=== PATIENT | male | born 1985 | race Hispanic/Latino ===

== ENCOUNTER 2019-03-04 13:25 | Emergency (ER) | payer OTHER ==
[~2019-03-04] VITALS: Ht 172.7 cm; Wt 97.7 kg
[2019-03-04] MEDS ORDERED: KETOROLAC 30 MG/ML VIAL (J1885) IV ONE (13:45)
[2019-03-04] MEDS ORDERED: KETOROLAC 60 MG/2 ML VIAL (J1885) IM ONE (14:15)
--- NOTE | 2019-03-04 15:00 | REP ---
PELVIS AND LEFT HIP: AP view of the pelvis and AP and frog-leg views of the left hip are performed. There is a intramedullary jordana in the left femur. Two metallic screws are seen in the proximal left femur, in the intertrochanteric and subtrochanteric regions. There are mild heterotopic calcifications along the greater trochanter. There is no acute fracture or dislocation. IMPRESSION: No acute fracture or dislocation. Electronically Signed by Lei Self MD 03/05/2019 03:08 P
--- NOTE | 2019-03-04 15:02 | REP ---
LEFT FEMUR, TWO VIEWS: AP and lateral views of the left femur are performed. Intramedullary jordana is seen in the femur. Metallic screws are also seen. There appears to be an old healed fracture of the femoral shaft. No acute fracture or dislocation is seen. IMPRESSION: No acute fracture or dislocation. Electronically Signed by Lei Self MD 03/05/2019 03:09 P
[2019-03-04] MEDS ORDERED: IBUP80TA PO (15:09)
[2019-03-04 15:23] VITALS: BP 125/68
== END 2019-03-04 15:36 | disposition home or self-care (01) ==
LOC: M ED 13:25
DX: S76.112A Strain of left quadriceps muscle, fascia and tendon, initial encounter (principal); X50.1XXA Overexertion from prolonged static or awkward postures, initial encounter; Y92.139 Unspecified place military base as the place of occurrence of the external cause; Y93.02 Activity, running; Z87.81 Personal history of (healed) traumatic fracture
CPT/HCPCS: 73502; 73552; 96372; 99284; J1885

== ENCOUNTER 2021-08-22 16:31 | Emergency (ER) | payer OTHER ==
[~2021-08-22] VITALS: Ht 172.7 cm; Wt 107.2 kg
[~2021-08-22 16:31] MED LIST: IBUP80TA PO
[2021-08-22 16:32] VITALS: BP 133/77
[2021-08-22] MEDS ORDERED: TIZA4CAP6 PO (16:40)
--- OUTSIDE RECORDS SUMMARY | 2021-08-22 16:42 | CCD ---
Author Organization Unknown Address [address] [place] [address] Phone [phone] Care Team Providers Care Family Medicine Resident Name Role Phone [facility] 3 [phone] Allergies Code Code System Name Reaction Severity Status Onset NKDA Medications Name Status Start Date Stop Date Cymbalta 30 mg capsule,delayed release Take 1 capsule every day by oral route. Completed 05/21/2020 multivitamin once daily Active Not available sildenafil 100 mg tablet Active Not ronn ilable tizanidine 4 mg tablet TAKE 1 TABLET BY MOUTH EVERY 8 HOURS NEEDED Active Not available trazodone 50 mg tablet Take 1 tablet every day by oral route at bedtime. Completed 05/21/2020 Problems None recorded. Procedures Date Name Performed by Arthroscopy Notes: left knee screw removal Information not available Open Reduction of Fracture o f Femur Notes: left Information not available 08/07/2019 MRI, Lumbar Spine, W/o Contrast [facility] [address] [address] (Work Place) Results Lab Results Date Name Specimen Result Interpretation Description Value Range Status Address 07/02/2021 [facility] Pdf Report NOS No observation recorded. [facility]: [address] [facility] 07/02/2021 SARS CoV 2 RNA (COVID-19), QL, living skills advisor-PCR, Respirat ory Specimen NOS Normal Sars-cov-2 negative negative Final [facility]: [facility] 05/01/2020 SARS CoV 2 RNA (COVID-19), QL, living skills advisor-PCR, Respiratory Specim en No observation recorded. [employer]: [address] [place] [address], [place] Past Encounters 07/08/2021 Lumbosacral Spondylosis without Myelopathy; Spondylosis without Myelopathy; Degeneration of Lumbar Intervertebral Disc; Degeneration of Lumbosacral Intervertebral Disc; Displacement of Lumbar Intervertebral Disc without Myelopathy; Intervertebral Disc Disorder; Spondylolysis; Inflammation of Sacroiliac Joint; Myofascial Pain Jian Collins MD: [id number] [address], [place] [address], Ph. 07/02/2021 Pre-surgery Testing; Viral Screening Jian Collins MD: [address] [address], [place] [address], Ph. [phone] 07/01/2021 Lumbosacral Spondylosis without Myelopathy; Degeneration of Lumbar Intervertebral Disc; Degeneration of Lumbosacral Intervertebral Disc; Displacement of Lumbar Intervertebral Disc without Myelopathy; Intervertebral Disc Disorder; Spondylosis without Myelopathy; Spondylolysis; Inflammation of Sacroiliac Joint; Myofascial Pain Jenny Doran, FAST FOOD WORKER: [address] [address], [place] [address], Ph. 06/07/2021 Myofascial Pain; Lumbosacral Spondylosis without Myelopathy; Degeneration of Lumbar Intervertebral Disc; Degeneration of Lumbosacral Intervertebral Disc; Displacement of Lumbar Intervertebral Disc without Myelopathy; Intervertebral Disc Disorder; Spondylosis without Myelopathy; Spondylolysis; Inflammation of Sacroiliac Joint Jian Collins MD: [address] [address], [place] [address], Ph. 05/21/2021 Lumbosacral Spondylosis without Myelopathy; Degeneration of Lumbar Intervertebral Disc; Degeneration of Lumbosacral Intervertebral Disc; Displacement of Lumbar Intervertebral Disc without Myelopathy; Intervertebral Disc Disorder; Spondylosis without Myelopathy; Spondylolysis; Inflammation of Sacroiliac Joint; Myofascial Pain Jenny Doran, FAST FOOD WORKER: [id number] [address], [place] [address], Ph. 03/08/2021 Lumbosacral Spondylosis without Myelopathy; Degeneration of Lumbar Intervertebral Disc; Degeneration of Lumbosacral Intervertebral Disc; Displacement of Lumbar Intervertebral Disc without Myelopathy; Intervertebral Disc Disorder; Spondylosis without Myelopathy; Spondylolysis; Inflammation of Sacroiliac Joint Jenny Doran, FAST FOOD WORKER: [address] [address], Ph. 02/19/2021 Lumbosacral Spondylosis without Myelopathy; Spondylosis without Myelopathy; Degeneration of Lumbar Intervertebral Disc; Degeneration of Lumbosacral Intervertebral Disc; Displacement of Lumbar Intervertebral Disc without Myelopathy; Intervertebral Disc Disorder; Spondylolysis; Inflammation of Sacroiliac Joint Jian Collins MD: [id number] [address], Ph. 02/02/2021 Lumbosacral Spondylosis without Myelopathy; Degeneration of Lumbar Intervertebral Disc; Degeneration of Lumbosacral Intervertebral Disc; Displacement of Lumbar Intervertebral Disc without Myelopathy; Intervertebral Disc Disorder; Spondylosis without Myelopathy; Spondylolysis; Inflammation of Sacroiliac Joint Jenny Nadege Doran, FAST FOOD WORKER: [address] [address], Ph. 01/28/2021 Lumbosacral Spondylosis without Myelopathy; Spondylosis without Myelopathy; Degeneration of Lumbar Intervertebral Disc; Degeneration of Lumbosacral Intervertebral Disc; Displacement of Lumbar Intervertebral Disc without Myelopathy; Intervertebral Disc Disorder; Spondylolysis; Inflammation of Sacroiliac Joint Jian Collins MD: [address] [address], Ph. 01/07/2021 Lumbosacral Spondylosis without Myelopathy; Degeneration of Lumbar Intervertebral Disc; Degeneration of Lumbosacral Intervertebral Disc; Displacement of Lumbar Intervertebral Disc without Myelopathy; Intervertebral Disc Disorder; Spondylosis without Myelopathy; Spondylolysis; Inflammation of Sacroiliac Joint Jenny Stacysonkris Simson, FAST FOOD WORKER: [address] [address], Ph. 12/23/2020 Inflammation of Sacroiliac Joint; Lumbosacral Spondylosis without Myelopathy; Degeneration of Lumbar Intervertebral Disc; Degeneration of Lumbosacral Intervertebral Disc; Displacement of Lumbar Intervertebral Disc without Myelopathy; Intervertebral Disc Disorder; Spondylosis without Myelopathy; Spondylolysis Jian Collins MD: [id number] [address], [place] [address], Ph. 12/09/2020 Lumbosacral Spondylosis without Myelopathy; Degeneration of Lumbar Intervertebral Disc; Degeneration of Lumbosacral Intervertebral Disc; Displacement of Lumbar Intervertebral Disc without Myelopathy; Intervertebral Disc Disorder; Spondylosis without Myelopathy; Spondylolysis; Inflammation of Sacroiliac Joint Jenny Nadege Doran, FAST FOOD WORKER: [address] [address], [place] [address], Ph. 05/21/2020 Lumbosacral Spondylosis without Myelopathy; Degeneration of Lumbar Intervertebral Disc; Degeneration of Lumbosacral Intervertebral Disc; Displacement of Lumbar Intervertebral Disc without Myelopathy; Intervertebral Disc Disorder; Spondylosis without Myelopathy; Spondylolysis; Inflammation of Sacroiliac Joint Jenny Nadege Doran, FAST FOOD WORKER: [address] [address], Ph. 05/06/2020 Inflammation of Sacroiliac Joint; Lumbosacral Spondylosis without Myelopathy; Degeneration of Lumbar Intervertebral Disc; Degeneration of Lumbosacral Intervertebral Disc; Displacement of Lumbar Intervertebral Disc without Myelopathy; Intervertebral Disc Disorder; Spondylosis without Myelopathy; Spondylolysis Jian Collins MD: [address] [address], Ph. 05/01/2020 Pre-surgery Testing; Viral Screening Jian Collins MD: [address] [address], [place] [address], Ph. [phone] 03/09/2020 Lumbosacral Spondylosis without Myelopathy; Degeneration of Lumbar Intervertebral Disc; Degeneration of Lumbosacral Intervertebral Disc; Displacement of Lumbar Intervertebral Disc without Myelopathy; Intervertebral Disc Disorder; Spondylosis without Myelopathy; Spondylolysis; Inflammation of Sacroiliac Joint Jenny Stacysonkris Doran, FAST FOOD WORKER: [address] [address], [place] [address], Ph. 02/10/2020 Lumbosacral Spondylosis without Myelopathy; Degeneration of Lumbar Intervertebral Disc; Degeneration of Lumbosacral Intervertebral Disc; Displacement of Lumbar Intervertebral Disc without Myelopathy; Intervertebral Disc Disorder; Spondylosis without Myelopathy; Spondylolysis Jenny Doran, FAST FOOD WORKER: [address] [address], Ph. 01/10/2020 Lumbosacral Spondylosis without Myelopathy; Spondylosis without Myelopathy; Degeneration of Lumbar Intervertebral Disc; Degeneration of Lumbosacral Intervertebral Disc; Displacement of Lumbar Intervertebral Disc without Myelopathy; Intervertebral Disc Disorder; Spondylolysis Jian Collins MD: [address] [address], Ph. 12/26/2019 Lumbosacral Spondylosis without Myelopathy; Spondylosis without Myelopathy; Degeneration of Lumbar Intervertebral Disc; Degeneration of Lumbosacral Intervertebral Disc; Displacement of Lumbar Intervertebral Disc without Myelopathy; Intervertebral Disc Disorder; Spondylolysis Jian Collins MD: [address] [address], Ph. 12/04/2019 Lumbosacral Spondylosis without Myelopathy; Degeneration of Lumbar Intervertebral Disc; Degeneration of Lumbosacral Intervertebral Disc; Displacement of Lumbar Intervertebral Disc without Myelopathy; Intervertebral Disc Disorder; Spondylosis without Myelopathy; Spondylolysis Jenny Doran, FAST FOOD WORKER: [address] [address], Ph. 11/28/2019 Lumbosacral Spondylosis without Myelopathy; Spondylosis without Myelopathy; Degeneration of Lumbosacral Intervertebral Disc; Degeneration of Lumbar Intervertebral Disc; Intervertebral Disc Disorder; Displacement of Lumbar Intervertebral Disc without Myelopathy Jian Collins MD: [address] [address], Ph. 11/07/2019 Intervertebral Disc Disorder; Displacement of Lumbar Intervertebral Disc without Myelopathy; Degeneration of Lumbosacral Intervertebral Disc; Degeneration of Lumbar Intervertebral Disc; Lumbosacral Spondylosis without Myelopathy; Spondylosis without Myelopathy Jian Collins MD: [address] [address], Ph. 10/03/2019 Intervertebral Disc Disorder; Displacement of Lumbar Intervertebral Disc without Myelopathy; Degeneration of Lumbosacral Intervertebral Disc; Degeneration of Lumbar Intervertebral Disc; Lumbosacral Spondylosis without Myelopathy; Spondylosis without Myelopathy Jian Collins MD: [address] [address], Ph. 09/12/2019 Intervertebral Disc Disorder; Displacement of Lumbar Intervertebral Disc without Myelopathy; Degeneration of Lumbosacral Intervertebral Disc; Degeneration of Lumbar Intervertebral Disc; Lumbosacral Spondylosis without Myelopathy; Spondylosis without Myelopathy Jian Collins MD: [address] [address], Ph. 08/29/2019 Lumbosacral Spondylosis without Myelopathy; Spondylosis without Myelopathy; Degeneration of Lumbar Intervertebral Disc; Degeneration of Lumbosacral Intervertebral Disc; Displacement of Lumbar Intervertebral Disc without Myelopathy; Intervertebral Disc Disorder Jian Collins MD: [address] [address], Ph. 08/28/2019 Lumbosacral Spondylosis without Myelopathy; Degeneration of Lumbar Intervertebral Disc; Degeneration of Lumbosacral Intervertebral Disc; Displacement of Lumbar Intervertebral Disc without Myelopathy; Intervertebral Disc Disorder; Spondylosis without Myelopathy; Spondylolysis Jenny Doran NP: [address] [address], Ph. 08/05/2019 Lumbosacral Spondylosis without Myelopathy Jian Collins MD: [address] [address], Ph. Social History Tobacco Smoking Status Never Smoker Vaccine List None recorded. Plan of Care Reminders Provider Appointments None recorded. Lab None recorded. Referral None recorded. Procedures None recorded. Surgeries None recorded. Imaging None recorded. Vitals 07/01/2021 01:15PM FOLLOW-UP Height Blood Pressure 5 ft 9 in 161/93 mm[Hg] 05/21/2021 11:15AM FOLLOW-UP Height Blood Pressure 5 ft 9 in 134/85 mm[Hg] 03/08/2021 02:15PM FOLLOW-UP Height Blood Pressure 5 ft 9 in 135/85 mm[Hg] 02/02/2021 11:45AM FOLLOW-UP Height Blood Pressure 5 ft 9 in 104/70 mm[Hg] 01/07/2021 02:15PM FOLLOW-UP Height Blood Pressure 5 ft 9 in 121/84 mm[Hg] 12/09/2020 02:30PM Extended Follow Up Visit Height Blood Pressure 5 ft 9 in 132/84 mm[Hg] 03/09/2020 10:00AM FOLLOW-UP Height Blood Pressure 5 ft 9 in 133/87 mm[Hg] 12/04/2019 04:30PM FOLLOW-UP Height Weight BMI Blood Pressure 5 ft 9 in 213 lbs 31.5 kg/m2 143/72 mm[Hg] 08/28/2019 08:15AM FOLLOW-UP Height Blood Pressure 5 ft 9 in 129/75 mm[Hg] 08/05/2019 03:00PM NEW PATIENT Height Weight BMI Blood Pressure 5 ft 9 in 213 lbs 31.5 kg/m2 128/76 mm[Hg]
--- OUTSIDE RECORDS SUMMARY | 2021-08-22 16:42 | CCD ---
Author Organization Unknown Address [address] [place] [address] Phone [phone] Care Team Providers Care Boiler Or Engine Operator Name Role Phone [facility] 3 [phone] Allergies Code Code System Name Reaction [...] available 08/07/2019 MRI, Lumbar Spine, W/o Contrast [facility] [address] [address] (Work Place) Results Lab Results Date Name Specimen Result Interpretation Description Value Range Status Address 05/01/2020 SARS CoV 2 RNA (COVID-19), QL, automotive design drafter-PCR, Respiratory Specim en No observation recorded. [employer]: [address] [place] [address] Past Encounters 07/02/2021 Pre-surgery Testing; Viral Screening Jian Collins MD: [id number] [facility], [place] [address], Ph. [phone] 07/01/2021 Lumbosacral Spondylosis without Myelopathy; Degeneration of Lumbar Intervertebral Disc; Degeneration of Lumbosacral Intervertebral Disc; Displacement of Lumbar Intervertebral Disc without Myelopathy; Intervertebral Disc Disorder; Spondylosis without Myelopathy; Spondylolysis; Inflammation of Sacroiliac Joint; Myofascial Pain Jenny Doran NP: [id number] [address], Ph. 06/07/2021 Myofascial Pain; Lumbosacral Spondylosis without Myelopathy; Degeneration of Lumbar Intervertebral Disc; Degeneration of Lumbosacral Intervertebral Disc; Displacement of Lumbar Intervertebral Disc without Myelopathy; Intervertebral Disc Disorder; Spondylosis without Myelopathy; Spondylolysis; Inflammation of Sacroiliac Joint Jian Collins MD: [address] [address], Ph. 05/21/2021 Lumbosacral Spondylosis without Myelopathy; Degeneration of Lumbar Intervertebral Disc; Degeneration of Lumbosacral Intervertebral Disc; Displacement of Lumbar Intervertebral Disc without Myelopathy; Intervertebral Disc Disorder; Spondylosis without Myelopathy; Spondylolysis; Inflammation of Sacroiliac Joint; Myofascial Pain Jenny Doran NP: [id number] [address], Ph. 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 02/19/2021 Lumbosacral Spondylosis without Myelopathy; Spondylosis without Myelopathy; Degeneration of Lumbar Intervertebral Disc; Degeneration of Lumbosacral Intervertebral Disc; Displacement of Lumbar Intervertebral Disc without Myelopathy; Intervertebral Disc Disorder; Spondylolysis; Inflammation of Sacroiliac Joint Jian Collins MD: [address] [address], Ph. 02/02/2021 Lumbosacral Spondylosis without Myelopathy; Degeneration of Lumbar Intervertebral Disc; Degeneration of Lumbosacral Intervertebral Disc; Displacement of Lumbar Intervertebral Disc without Myelopathy; Intervertebral Disc Disorder; Spondylosis without Myelopathy; Spondylolysis; Inflammation of Sacroiliac Joint Jenny Nadege Doran, LEGAL ARBITRATOR: [address] [address], Ph. 01/28/2021 Lumbosacral Spondylosis without Myelopathy; Spondylosis without Myelopathy; Degeneration of Lumbar Intervertebral Disc; Degeneration of Lumbosacral Intervertebral Disc; Displacement of Lumbar Intervertebral Disc without Myelopathy; Intervertebral Disc Disorder; Spondylolysis; Inflammation of Sacroiliac Joint Jian Collins MD: [address] [address], Ph. 01/07/2021 Lumbosacral Spondylosis without Myelopathy; Degeneration of Lumbar Intervertebral Disc; Degeneration of Lumbosacral Intervertebral Disc; Displacement of Lumbar Intervertebral Disc without Myelopathy; Intervertebral Disc Disorder; Spondylosis without Myelopathy; Spondylolysis; Inflammation of Sacroiliac Joint Jenny Nadege Doran, LEGAL ARBITRATOR: [address] [address], Ph. 12/23/2020 Inflammation of Sacroiliac Joint; Lumbosacral Spondylosis without Myelopathy; Degeneration of Lumbar Intervertebral Disc; Degeneration of Lumbosacral Intervertebral Disc; Displacement of Lumbar Intervertebral Disc without Myelopathy; Intervertebral Disc Disorder; Spondylosis without Myelopathy; Spondylolysis Jian Collins MD: [address] [address], Ph. 12/09/2020 Lumbosacral Spondylosis without Myelopathy; Degeneration of Lumbar Intervertebral Disc; Degeneration of Lumbosacral Intervertebral Disc; Displacement of Lumbar Intervertebral Disc without Myelopathy; Intervertebral Disc Disorder; Spondylosis without Myelopathy; Spondylolysis; Inflammation of Sacroiliac Joint Jenny Stacysonkris Doran, LEGAL ARBITRATOR: [address] [address], Ph. 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 05/06/2020 Inflammation of Sacroiliac Joint; Lumbosacral Spondylosis without Myelopathy; Degeneration of Lumbar Intervertebral Disc; Degeneration of Lumbosacral Intervertebral Disc; Displacement of Lumbar Intervertebral Disc without Myelopathy; Intervertebral Disc Disorder; Spondylosis without Myelopathy; Spondylolysis Jian Collins MD: [address] [address], Ph. 05/01/2020 Pre-surgery Testing; Viral Screening Jian Collins MD: [address] [address], Ph. [phone] 03/09/2020 Lumbosacral Spondylosis without Myelopathy; Degeneration of Lumbar Intervertebral Disc; Degeneration of Lumbosacral Intervertebral Disc; Displacement of Lumbar Intervertebral Disc without Myelopathy; Intervertebral Disc Disorder; Spondylosis without Myelopathy; Spondylolysis; Inflammation of Sacroiliac Joint Jenny Doran, LEGAL ARBITRATOR: [address] [address], Ph. 02/10/2020 Lumbosacral Spondylosis without Myelopathy; Degeneration of Lumbar Intervertebral Disc; Degeneration of Lumbosacral Intervertebral Disc; Displacement of Lumbar Intervertebral Disc without Myelopathy; Intervertebral Disc Disorder; Spondylosis without Myelopathy; Spondylolysis Jenny Doran, LEGAL ARBITRATOR: [address] [address], Ph. 01/10/2020 Lumbosacral Spondylosis without Myelopathy; Spondylosis without Myelopathy; Degeneration of Lumbar Intervertebral Disc; Degeneration of Lumbosacral Intervertebral Disc; Displacement of Lumbar Intervertebral Disc without Myelopathy; Intervertebral Disc Disorder; Spondylolysis Jian Collins MD: [address] [address], Ph. 12/26/2019 Lumbosacral Spondylosis without Myelopathy; Spondylosis without Myelopathy; Degeneration of Lumbar Intervertebral Disc; Degeneration of Lumbosacral Intervertebral Disc; Displacement of Lumbar Intervertebral Disc without Myelopathy; Intervertebral Disc Disorder; Spondylolysis Jian Collins MD: [address] [address], [place] [address], Ph. 12/04/2019 Lumbosacral Spondylosis without Myelopathy; Degeneration of Lumbar Intervertebral Disc; Degeneration of Lumbosacral Intervertebral Disc; Displacement of Lumbar Intervertebral Disc without Myelopathy; Intervertebral Disc Disorder; Spondylosis without Myelopathy; Spondylolysis Jenny Doran, LEGAL ARBITRATOR: [address] [address], Ph. 11/28/2019 Lumbosacral Spondylosis without Myelopathy; Spondylosis without Myelopathy; Degeneration of Lumbosacral Intervertebral Disc; Degeneration of Lumbar Intervertebral Disc; Intervertebral Disc Disorder; Displacement of Lumbar Intervertebral Disc without Myelopathy Jian Collins MD: [address] [address], [facility] [place] [address], Ph. 11/07/2019 Intervertebral Disc Disorder; Displacement of Lumbar Intervertebral Disc without Myelopathy; Degeneration of Lumbosacral Intervertebral Disc; Degeneration of Lumbar Intervertebral Disc; Lumbosacral Spondylosis without Myelopathy; Spondylosis without Myelopathy Jian Collins MD: [address] [address], Ph. 10/03/2019 Intervertebral Disc Disorder; Displacement of Lumbar Intervertebral Disc without Myelopathy; Degeneration of Lumbosacral Intervertebral Disc; Degeneration of Lumbar Intervertebral Disc; Lumbosacral Spondylosis without Myelopathy; Spondylosis without Myelopathy Jian Collins MD: [address] [address], Ph. 09/12/2019 Intervertebral Disc Disorder; Displacement of Lumbar Intervertebral Disc without Myelopathy; Degeneration of Lumbosacral Intervertebral Disc; Degeneration of Lumbar Intervertebral Disc; Lumbosacral Spondylosis without Myelopathy; Spondylosis without Myelopathy Jian Collins MD: [address], [place] [address], Ph. 08/29/2019 Lumbosacral Spondylosis without Myelopathy; Spondylosis without Myelopathy; Degeneration of Lumbar Intervertebral Disc; Degeneration of Lumbosacral Intervertebral Disc; Displacement of Lumbar Intervertebral Disc without Myelopathy; Intervertebral Disc Disorder Jian Collins MD: [address] [address], Ph. 08/28/2019 Lumbosacral Spondylosis without Myelopathy; Degeneration of Lumbar Intervertebral Disc; Degeneration of Lumbosacral Intervertebral Disc; Displacement of Lumbar Intervertebral Disc without Myelopathy; Intervertebral Disc Disorder; Spondylosis without Myelopathy; Spondylolysis Jenny Doran LEGAL ARBITRATOR: [address] [address], Ph. 08/05/2019 Lumbosacral Spondylosis without Myelopathy Jian Collins MD: [address] [address], [place] [address], Ph. Social History Tobacco Smoking Status Never [...]
--- OUTSIDE RECORDS SUMMARY | 2021-08-22 16:42 | CCD ---
Author Organization Unknown Address [address] [place] [address] Phone [phone] Care Team Providers Care Senior Customer Service Representative Name Role Phone [facility] 3 [phone] Allergies Code Code System Name Reaction [...] available 08/07/2019 MRI, Lumbar Spine, W/o Contrast [facility] [address] [address] (Work Place) Results Lab Results Date Name Specimen Result Interpretation Description Value Range Status Address 07/02/2021 [facility] Pdf Report NOS No observation recorded. [facility] Covid: [address] 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 [employer]: [address] [place] [address], [place] Past Encounters 07/12/2021 Lumbosacral Spondylosis without Myelopathy; Degeneration of Lumbar Intervertebral Disc; Degeneration of Lumbosacral Intervertebral Disc; Displacement of Lumbar Intervertebral Disc without Myelopathy; Intervertebral Disc Disorder; Spondylosis without Myelopathy; Spondylolysis; Inflammation of Sacroiliac Joint; Myofascial Pain Jenny Doran, INDUSTRIAL TRAINER: [address] [facility], [facility] [place] [address], Ph. 07/08/2021 Lumbosacral Spondylosis without Myelopathy; Spondylosis without Myelopathy; Degeneration of Lumbar Intervertebral Disc; Degeneration of Lumbosacral Intervertebral Disc; Displacement of Lumbar Intervertebral Disc without Myelopathy; Intervertebral Disc Disorder; Spondylolysis; Inflammation of Sacroiliac Joint; Myofascial Pain Jian Collins MD: [address] [facility], [facility] [place] [address], Ph. 07/02/2021 Pre-surgery Testing; Viral Screening Jian Collins MD: [address] [address], [facility] [place] [address], Ph. [phone] 07/01/2021 Lumbosacral Spondylosis without Myelopathy; Degeneration of Lumbar Intervertebral Disc; Degeneration of Lumbosacral Intervertebral Disc; Displacement of Lumbar Intervertebral Disc without Myelopathy; Intervertebral Disc Disorder; Spondylosis without Myelopathy; Spondylolysis; Inflammation of Sacroiliac Joint; Myofascial Pain Jenny Doran, INDUSTRIAL TRAINER: [address] [facility], [facility] [place] [address], Ph. 06/07/2021 Myofascial Pain; Lumbosacral Spondylosis without Myelopathy; Degeneration of Lumbar Intervertebral Disc; Degeneration of Lumbosacral Intervertebral Disc; Displacement of Lumbar Intervertebral Disc without Myelopathy; Intervertebral Disc Disorder; Spondylosis without Myelopathy; Spondylolysis; Inflammation of Sacroiliac Joint Jian Collins MD: [address]26 [facility], [place] [address], Ph. 05/21/2021 Lumbosacral Spondylosis without Myelopathy; Degeneration of Lumbar Intervertebral Disc; Degeneration of Lumbosacral Intervertebral Disc; Displacement of Lumbar Intervertebral Disc without Myelopathy; Intervertebral Disc Disorder; Spondylosis without Myelopathy; Spondylolysis; Inflammation of Sacroiliac Joint; Myofascial Pain Jenny Doran, INDUSTRIAL TRAINER: [address] [address], Ph. 03/08/2021 Lumbosacral Spondylosis without Myelopathy; Degeneration of Lumbar Intervertebral Disc; Degeneration of Lumbosacral Intervertebral Disc; Displacement of Lumbar Intervertebral Disc without Myelopathy; Intervertebral Disc Disorder; Spondylosis without Myelopathy; Spondylolysis; Inflammation of Sacroiliac Joint Jenny Stacysonkris Doran INDUSTRIAL TRAINER: [address] [address], Ph. 02/19/2021 Lumbosacral Spondylosis without Myelopathy; Spondylosis without Myelopathy; Degeneration of Lumbar Intervertebral Disc; Degeneration of Lumbosacral Intervertebral Disc; Displacement of Lumbar Intervertebral Disc without Myelopathy; Intervertebral Disc Disorder; Spondylolysis; Inflammation of Sacroiliac Joint Jian Collins MD: [address] [address], Ph. 02/02/2021 Lumbosacral Spondylosis without Myelopathy; Degeneration of Lumbar Intervertebral Disc; Degeneration of Lumbosacral Intervertebral Disc; Displacement of Lumbar Intervertebral Disc without Myelopathy; Intervertebral Disc Disorder; Spondylosis without Myelopathy; Spondylolysis; Inflammation of Sacroiliac Joint Jenny Nadege Doran INDUSTRIAL TRAINER: [address] [address], Ph. 01/28/2021 Lumbosacral Spondylosis without Myelopathy; Spondylosis without Myelopathy; Degeneration of Lumbar Intervertebral Disc; Degeneration of Lumbosacral Intervertebral Disc; Displacement of Lumbar Intervertebral Disc without Myelopathy; Intervertebral Disc Disorder; Spondylolysis; Inflammation of Sacroiliac Joint Jian Collins MD: [address] [address], Ph. 01/07/2021 Lumbosacral Spondylosis without Myelopathy; Degeneration of Lumbar Intervertebral Disc; Degeneration of Lumbosacral Intervertebral Disc; Displacement of Lumbar Intervertebral Disc without Myelopathy; Intervertebral Disc Disorder; Spondylosis without Myelopathy; Spondylolysis; Inflammation of Sacroiliac Joint Jenny Manongsong Jumalon, INDUSTRIAL TRAINER: [address] [address], Ph. 12/23/2020 Inflammation of Sacroiliac Joint; Lumbosacral Spondylosis without Myelopathy; Degeneration of Lumbar Intervertebral Disc; Degeneration of Lumbosacral Intervertebral Disc; Displacement of Lumbar Intervertebral Disc without Myelopathy; Intervertebral Disc Disorder; Spondylosis without Myelopathy; Spondylolysis Jian Collins MD: [address] [address], [place] [address], Ph. 12/09/2020 Lumbosacral Spondylosis without Myelopathy; Degeneration of Lumbar Intervertebral Disc; Degeneration of Lumbosacral Intervertebral Disc; Displacement of Lumbar Intervertebral Disc without Myelopathy; Intervertebral Disc Disorder; Spondylosis without Myelopathy; Spondylolysis; Inflammation of Sacroiliac Joint Jenny Nadege Doran, INDUSTRIAL TRAINER: [address] [address], Ph. 05/21/2020 Lumbosacral Spondylosis without Myelopathy; Degeneration of Lumbar Intervertebral Disc; Degeneration of Lumbosacral Intervertebral Disc; Displacement of Lumbar Intervertebral Disc without Myelopathy; Intervertebral Disc Disorder; Spondylosis without Myelopathy; Spondylolysis; Inflammation of Sacroiliac Joint Jenny Nadege Doran, INDUSTRIAL TRAINER: [address] [address], Ph. 05/06/2020 Inflammation of Sacroiliac Joint; Lumbosacral Spondylosis without Myelopathy; Degeneration of Lumbar Intervertebral Disc; Degeneration of Lumbosacral Intervertebral Disc; Displacement of Lumbar Intervertebral Disc without Myelopathy; Intervertebral Disc Disorder; Spondylosis without Myelopathy; Spondylolysis Jian Collins MD: [address] [address], Ph. 05/01/2020 Pre-surgery Testing; Viral Screening Jian Collins MD: [address] [address], Ph. [phone] 03/09/2020 Lumbosacral Spondylosis without Myelopathy; Degeneration of Lumbar Intervertebral Disc; Degeneration of Lumbosacral Intervertebral Disc; Displacement of Lumbar Intervertebral Disc without Myelopathy; Intervertebral Disc Disorder; Spondylosis without Myelopathy; Spondylolysis; Inflammation of Sacroiliac Joint Jenny Doran INDUSTRIAL TRAINER: [address] [address], Ph. 02/10/2020 Lumbosacral Spondylosis without Myelopathy; Degeneration of Lumbar Intervertebral Disc; Degeneration of Lumbosacral Intervertebral Disc; Displacement of Lumbar Intervertebral Disc without Myelopathy; Intervertebral Disc Disorder; Spondylosis without Myelopathy; Spondylolysis Jenny Doran, INDUSTRIAL TRAINER: [address] [address], Ph. 01/10/2020 Lumbosacral Spondylosis without Myelopathy; Spondylosis without Myelopathy; Degeneration of Lumbar Intervertebral Disc; Degeneration of Lumbosacral Intervertebral Disc; Displacement of Lumbar Intervertebral Disc without Myelopathy; Intervertebral Disc Disorder; Spondylolysis Jian Collins MD: [address] [address], Ph. 12/26/2019 Lumbosacral Spondylosis without Myelopathy; Spondylosis without Myelopathy; Degeneration of Lumbar Intervertebral Disc; Degeneration of Lumbosacral Intervertebral Disc; Displacement of Lumbar Intervertebral Disc without Myelopathy; Intervertebral Disc Disorder; Spondylolysis Jian Collins MD: [address] [address], Ph. 12/04/2019 Lumbosacral Spondylosis without Myelopathy; Degeneration of Lumbar Intervertebral Disc; Degeneration of Lumbosacral Intervertebral Disc; Displacement of Lumbar Intervertebral Disc without Myelopathy; Intervertebral Disc Disorder; Spondylosis without Myelopathy; Spondylolysis Jenny Doran INDUSTRIAL TRAINER: [address] [address], Ph. 11/28/2019 Lumbosacral Spondylosis without Myelopathy; Spondylosis without Myelopathy; Degeneration of Lumbosacral Intervertebral Disc; Degeneration of Lumbar Intervertebral Disc; Intervertebral Disc Disorder; Displacement of Lumbar Intervertebral Disc without Myelopathy Jian Collins MD: [address] [address], [place] [address], Ph. 11/07/2019 Intervertebral Disc Disorder; Displacement of Lumbar Intervertebral Disc without Myelopathy; Degeneration of Lumbosacral Intervertebral Disc; Degeneration of Lumbar Intervertebral Disc; Lumbosacral Spondylosis without Myelopathy; Spondylosis without Myelopathy Jian Collins MD: [address] [address], [facility] [place] [address], Ph. 10/03/2019 Intervertebral Disc Disorder; Displacement of Lumbar Intervertebral Disc without Myelopathy; Degeneration of Lumbosacral Intervertebral Disc; Degeneration of Lumbar Intervertebral Disc; Lumbosacral Spondylosis without Myelopathy; Spondylosis without Myelopathy Jian Collins MD: [address] [address], Ph. 09/12/2019 Intervertebral Disc Disorder; Displacement of Lumbar Intervertebral Disc without Myelopathy; Degeneration of Lumbosacral Intervertebral Disc; Degeneration of Lumbar Intervertebral Disc; Lumbosacral Spondylosis without Myelopathy; Spondylosis without Myelopathy Jian Collins MD: [address] [address], [facility] [place] [address], Ph. 08/29/2019 Lumbosacral Spondylosis without Myelopathy; Spondylosis without Myelopathy; Degeneration of Lumbar Intervertebral Disc; Degeneration of Lumbosacral Intervertebral Disc; Displacement of Lumbar Intervertebral Disc without Myelopathy; Intervertebral Disc Disorder Jian Collins MD: [address] [address], [place] [address], Ph. 08/28/2019 Lumbosacral Spondylosis without Myelopathy; Degeneration of Lumbar Intervertebral Disc; Degeneration of Lumbosacral Intervertebral Disc; Displacement of Lumbar Intervertebral Disc without Myelopathy; Intervertebral Disc Disorder; Spondylosis without Myelopathy; Spondylolysis Jenny Doran NP: 155[address] [facility], [facility] [place] [address], Ph. 08/05/2019 Lumbosacral Spondylosis without Myelopathy Jian Collins MD: [address] [facility] [address], [place] [address], Ph. Social History Tobacco Smoking Status Never Smoker Vaccine List None recorded. Plan of Care Reminders Provider Appointments None recorded. Lab None recorded. Referral None recorded. Procedures None recorded. Surgeries None recorded. Imaging None recorded. Vitals 07/12/2021 11:00AM FOLLOW-UP Height Blood Pressure 5 ft 9 in 140/92 mm[Hg] 07/01/2021 01:15PM FOLLOW-UP Height Blood Pressure 5 [...]
--- OUTSIDE RECORDS SUMMARY | 2021-08-22 16:42 | CCD ---
Author Organization Unknown Address [address] [place] [address] Phone [phone] Care Team Providers Care Earth Science Technician Name Role Phone [facility] 3 [phone] Allergies Code Code System Name Reaction [...] available 08/07/2019 MRI, Lumbar Spine, W/o Contrast [facility] [address] [address] (Work Place) Results Lab Results Date Name Specimen Result Interpretation Description Value Range Status Address 07/02/2021 [facility] Pdf Report NOS No observation recorded. 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 [employer]: [address] [place] [address] Past Encounters 08/13/2021 Lumbosacral Spondylosis without Myelopathy; Spondylosis without Myelopathy; Degeneration of Lumbar Intervertebral Disc; Degeneration of Lumbosacral Intervertebral Disc; Displacement of Lumbar Intervertebral Disc without Myelopathy; Intervertebral Disc Disorder; Spondylolysis; Inflammation of Sacroiliac Joint; Myofascial Pain Jian Collins MD: [address] [facility], [facility] [place] [address], Ph. 07/12/2021 Lumbosacral Spondylosis without Myelopathy; Degeneration of Lumbar Intervertebral Disc; Degeneration of Lumbosacral Intervertebral Disc; Displacement of Lumbar Intervertebral Disc without Myelopathy; Intervertebral Disc Disorder; Spondylosis without Myelopathy; Spondylolysis; Inflammation of Sacroiliac Joint; Myofascial Pain Jenny Doran, CATERING ASSOCIATE: [address] [address], [facility] [place] [address], Ph. 07/08/2021 Lumbosacral Spondylosis without Myelopathy; Spondylosis without Myelopathy; Degeneration of Lumbar Intervertebral Disc; Degeneration of Lumbosacral Intervertebral Disc; Displacement of Lumbar Intervertebral Disc without Myelopathy; Intervertebral Disc Disorder; Spondylolysis; Inflammation of Sacroiliac Joint; Myofascial Pain Jian Collins MD: [address] [address], [facility] [place] [address], Ph. 07/02/2021 Pre-surgery Testing; Viral Screening Jian Collins MD: [address] [address], [facility] [place] [address], Ph. [phone] 07/01/2021 Lumbosacral Spondylosis without Myelopathy; Degeneration of Lumbar Intervertebral Disc; Degeneration of Lumbosacral Intervertebral Disc; Displacement of Lumbar Intervertebral Disc without Myelopathy; Intervertebral Disc Disorder; Spondylosis without Myelopathy; Spondylolysis; Inflammation of Sacroiliac Joint; Myofascial Pain Jenny Doran, CATERING ASSOCIATE: [address] [address], [facility] [place] [address], Ph. 06/07/2021 Myofascial Pain; Lumbosacral Spondylosis without Myelopathy; Degeneration of Lumbar Intervertebral Disc; Degeneration of Lumbosacral Intervertebral Disc; Displacement of Lumbar Intervertebral Disc without Myelopathy; Intervertebral Disc Disorder; Spondylosis without Myelopathy; Spondylolysis; Inflammation of Sacroiliac Joint Jian Collins MD: [address] [address], Ph. 05/21/2021 Lumbosacral Spondylosis without Myelopathy; Degeneration of Lumbar Intervertebral Disc; Degeneration of Lumbosacral Intervertebral Disc; Displacement of Lumbar Intervertebral Disc without Myelopathy; Intervertebral Disc Disorder; Spondylosis without Myelopathy; Spondylolysis; Inflammation of Sacroiliac Joint; Myofascial Pain Jenny Doran NP: [address] [address], Ph. 03/08/2021 Lumbosacral Spondylosis without Myelopathy; Degeneration of Lumbar Intervertebral Disc; Degeneration of Lumbosacral Intervertebral Disc; Displacement of Lumbar Intervertebral Disc without Myelopathy; Intervertebral Disc Disorder; Spondylosis without Myelopathy; Spondylolysis; Inflammation of Sacroiliac Joint Jenny Doran CATERING ASSOCIATE: [address] [address], Ph. 02/19/2021 Lumbosacral Spondylosis without Myelopathy; Spondylosis without Myelopathy; Degeneration of Lumbar Intervertebral Disc; Degeneration of Lumbosacral Intervertebral Disc; Displacement of Lumbar Intervertebral Disc without Myelopathy; Intervertebral Disc Disorder; Spondylolysis; Inflammation of Sacroiliac Joint Jian Collins MD: [address] [address], Ph. 02/02/2021 Lumbosacral Spondylosis without Myelopathy; Degeneration of Lumbar Intervertebral Disc; Degeneration of Lumbosacral Intervertebral Disc; Displacement of Lumbar Intervertebral Disc without Myelopathy; Intervertebral Disc Disorder; Spondylosis without Myelopathy; Spondylolysis; Inflammation of Sacroiliac Joint Jenny Doran CATERING ASSOCIATE: [address] [address], Ph. 01/28/2021 Lumbosacral Spondylosis without Myelopathy; Spondylosis without Myelopathy; Degeneration of Lumbar Intervertebral Disc; Degeneration of Lumbosacral Intervertebral Disc; Displacement of Lumbar Intervertebral Disc without Myelopathy; Intervertebral Disc Disorder; Spondylolysis; Inflammation of Sacroiliac Joint Jian Collins MD: [address] [address], Ph. 01/07/2021 Lumbosacral Spondylosis without Myelopathy; Degeneration of Lumbar Intervertebral Disc; Degeneration of Lumbosacral Intervertebral Disc; Displacement of Lumbar Intervertebral Disc without Myelopathy; Intervertebral Disc Disorder; Spondylosis without Myelopathy; Spondylolysis; Inflammation of Sacroiliac Joint Jenny Manongsong Jumalon, CATERING ASSOCIATE: [address] [address], Ph. 12/23/2020 Inflammation of Sacroiliac Joint; Lumbosacral Spondylosis without Myelopathy; Degeneration of Lumbar Intervertebral Disc; Degeneration of Lumbosacral Intervertebral Disc; Displacement of Lumbar Intervertebral Disc without Myelopathy; Intervertebral Disc Disorder; Spondylosis without Myelopathy; Spondylolysis Jian Collins MD: [address] [address], Ph. 12/09/2020 Lumbosacral Spondylosis without Myelopathy; Degeneration of Lumbar Intervertebral Disc; Degeneration of Lumbosacral Intervertebral Disc; Displacement of Lumbar Intervertebral Disc without Myelopathy; Intervertebral Disc Disorder; Spondylosis without Myelopathy; Spondylolysis; Inflammation of Sacroiliac Joint Jenny Manongsong Jumalon, CATERING ASSOCIATE: [address] [address], Ph. 05/21/2020 Lumbosacral Spondylosis without Myelopathy; Degeneration of Lumbar Intervertebral Disc; Degeneration of Lumbosacral Intervertebral Disc; Displacement of Lumbar Intervertebral Disc without Myelopathy; Intervertebral Disc Disorder; Spondylosis without Myelopathy; Spondylolysis; Inflammation of Sacroiliac Joint Jenny Manongsong Jumalon, CATERING ASSOCIATE: [address] [address], Ph. 05/06/2020 Inflammation of Sacroiliac Joint; Lumbosacral Spondylosis without Myelopathy; Degeneration of Lumbar Intervertebral Disc; Degeneration of Lumbosacral Intervertebral Disc; Displacement of Lumbar Intervertebral Disc without Myelopathy; Intervertebral Disc Disorder; Spondylosis without Myelopathy; Spondylolysis Jian Collins MD: [address] [address], [place] [address], Ph. 05/01/2020 Pre-surgery Testing; Viral Screening Jian Collins MD: [address] [address], Ph. [phone] 03/09/2020 Lumbosacral Spondylosis without Myelopathy; Degeneration of Lumbar Intervertebral Disc; Degeneration of Lumbosacral Intervertebral Disc; Displacement of Lumbar Intervertebral Disc without Myelopathy; Intervertebral Disc Disorder; Spondylosis without Myelopathy; Spondylolysis; Inflammation of Sacroiliac Joint Jenny Doran CATERING ASSOCIATE: [address] [address], [place] [address], Ph. 02/10/2020 Lumbosacral Spondylosis without Myelopathy; Degeneration of Lumbar Intervertebral Disc; Degeneration of Lumbosacral Intervertebral Disc; Displacement of Lumbar Intervertebral Disc without Myelopathy; Intervertebral Disc Disorder; Spondylosis without Myelopathy; Spondylolysis Jenny Doran, CATERING ASSOCIATE: [address] [address], Ph. 01/10/2020 Lumbosacral Spondylosis without Myelopathy; Spondylosis without Myelopathy; Degeneration of Lumbar Intervertebral Disc; Degeneration of Lumbosacral Intervertebral Disc; Displacement of Lumbar Intervertebral Disc without Myelopathy; Intervertebral Disc Disorder; Spondylolysis Jian Collins MD: [address] [address], [place] [address], Ph. 12/26/2019 Lumbosacral Spondylosis without Myelopathy; Spondylosis without Myelopathy; Degeneration of Lumbar Intervertebral Disc; Degeneration of Lumbosacral Intervertebral Disc; Displacement of Lumbar Intervertebral Disc without Myelopathy; Intervertebral Disc Disorder; Spondylolysis Jian Collins MD: [address] [address], [place] [address], Ph. 12/04/2019 Lumbosacral Spondylosis without Myelopathy; Degeneration of Lumbar Intervertebral Disc; Degeneration of Lumbosacral Intervertebral Disc; Displacement of Lumbar Intervertebral Disc without Myelopathy; Intervertebral Disc Disorder; Spondylosis without Myelopathy; Spondylolysis Jenny Doran NP: [address] [address], [place] [address], Ph. 11/28/2019 Lumbosacral Spondylosis without Myelopathy; Spondylosis without Myelopathy; Degeneration of Lumbosacral Intervertebral Disc; Degeneration of Lumbar Intervertebral Disc; Intervertebral Disc Disorder; Displacement of Lumbar Intervertebral Disc without Myelopathy Jian Collins MD: [address] [address], [place] [address], Ph. 11/07/2019 Intervertebral Disc Disorder; Displacement of Lumbar Intervertebral Disc without Myelopathy; Degeneration of Lumbosacral Intervertebral Disc; Degeneration of Lumbar Intervertebral Disc; Lumbosacral Spondylosis without Myelopathy; Spondylosis without Myelopathy Jian Collins MD: [address] [address], Ph. 10/03/2019 Intervertebral Disc Disorder; Displacement of Lumbar Intervertebral Disc without Myelopathy; Degeneration of Lumbosacral Intervertebral Disc; Degeneration of Lumbar Intervertebral Disc; Lumbosacral Spondylosis without Myelopathy; Spondylosis without Myelopathy Jian Collins MD: [address] [address], Ph. 09/12/2019 Intervertebral Disc Disorder; Displacement of Lumbar Intervertebral Disc without Myelopathy; Degeneration of Lumbosacral Intervertebral Disc; Degeneration of Lumbar Intervertebral Disc; Lumbosacral Spondylosis without Myelopathy; Spondylosis without Myelopathy Jian Collins MD: [address] [address], Ph. 08/29/2019 Lumbosacral Spondylosis without Myelopathy; Spondylosis without Myelopathy; Degeneration of Lumbar Intervertebral Disc; Degeneration of Lumbosacral Intervertebral Disc; Displacement of Lumbar Intervertebral Disc without Myelopathy; Intervertebral Disc Disorder Jian Collins MD: [address] [address], [place] [address], Ph. 08/28/2019 Lumbosacral Spondylosis without Myelopathy; Degeneration of Lumbar Intervertebral Disc; Degeneration of Lumbosacral Intervertebral Disc; Displacement of Lumbar Intervertebral Disc without Myelopathy; Intervertebral Disc Disorder; Spondylosis without Myelopathy; Spondylolysis Jenny Doran, CATERING ASSOCIATE: [address], [place] [address], Ph. 08/05/2019 Lumbosacral Spondylosis without Myelopathy Jian Collins MD: [address], [address], [place] [address], Ph. Social History Tobacco Smoking Status Never [...]
--- OUTSIDE RECORDS SUMMARY | 2021-08-22 16:43 | CCD ---
Author Author [facility] Organization [facility] Address Unknown Phone Unavailable Care Team Providers Care Cinder Block Mason Name Role Phone Mehreen Collins MD Unavailable Unavailable Mehreen Collins MD Unavailable Unavailable Mehreen Collins MD Unavailable Unavailable Mehreen Collins MD Unavailable Unavailable Mehreen Collins MD Unavailable Unavailable Mehreen Collins MD Unavailable Unavailable Mehreen Collins MD Unavailable Unavailable Mehreen Collins MD Unavailable Unavailable Mehreen Collins MD Unavailable Unavailable Mehreen Collins MD Unavailable Unavailable Mehreen Collins MD Unavailable Unavailable Mehreen Collins MD Unavailable Unavailable Mehreen Collins MD Unavailable Unavailable Mehreen Collins MD Unavailable Unavailable Mehreen Collins MD Unavailable Unavailable Mehreen Collins MD Unavailable Unavailable Mehreen Collins MD Unavailable Unavailable Mehreen Collins MD Unavailable Unavailable Mehreen Collins MD Unavailable Unavailable Mehreen Collins MD Unavailable Unavailable Mehreen Collins MD Unavailable Unavailable Mehreen Collins MD Unavailable Unavailable Mehreen Collins MD Unavailable Unavailable Mehreen Collins MD Unavailable Unavailable Mehreen Collins MD Unavailable Unavailable Mehreen Collins MD Unavailable Unavailable Mehreen Collins MD Unavailable Unavailable Mehreen Collins MD Unavailable Unavailable Mehreen Collins MD Unavailable Unavailable Mehreen Collins MD Unavailable Unavailable Mehreen Collins MD Unavailable Unavailable Mehreen Collins MD Unavailable Unavailable Mehreen Collins MD Unavailable Unavailable BolMehreen rivera MD Unavailable Unavailable BolMehreen rivera MD Unavailable Unavailable BolMehreen rivera MD Unavailable Unavailable BolMehreen rivera MD Unavailable Unavailable BolMehreen rivera MD Unavailable Unavailable Mehreen Collins MD Unavailable Unavailable Mehreen Collins MD Unavailable Unavailable Mehreen Collins MD Unavailable Unavailable BolMehreen rivera MD Unavailable Unavailable BolMehreen rivera MD Unavailable Unavailable BolMehreen rivera MD Unavailable Unavailable BolMehreen rivera MD Unavailable Unavailable BolMehreen rivera MD Unavailable Unavailable BolMehreen rivera MD Unavailable Unavailable BolMehreen rivera MD Unavailable Unavailable Mehreen Collins MD Unavailable Unavailable Jumalon, M Jenny FURNACE CLERK Unavailable Unavailable Jumalon, M Jenny FURNACE CLERK Unavailable Unavailable Jumalon, M Jenny FURNACE CLERK Unavailable Unavailable Jumalon, M Jenny FURNACE CLERK Unavailable Unavailable Jumalon, M Jenny FURNACE CLERK Unavailable Unavailable Jumalon, M Jenny FURNACE CLERK Unavailable Unavailable Jumalon, M Jenny FURNACE CLERK Unavailable Unavailable Jumalon, M Jenny FURNACE CLERK Unavailable Unavailable Jumalon, M Jenny FURNACE CLERK Unavailable Unavailable Jumalon, M Jenny FURNACE CLERK Unavailable Unavailable Jumalon, M Jenny FURNACE CLERK Unavailable Unavailable Jumalon, M Jenny FURNACE CLERK Unavailable Unavailable Jumalon, M Jenny FURNACE CLERK Unavailable Unavailable Jumalon, M Jenny FURNACE CLERK Unavailable Unavailable Jumalon, M Jenny FURNACE CLERK Unavailable Unavailable Jumalon, M Jenny FURNACE CLERK Unavailable Unavailable Jumalon, M Jenny FURNACE CLERK Unavailable Unavailable Jumalon, M Jenny FURNACE CLERK Unavailable Unavailable Jumalon, M Jenny FURNACE CLERK Unavailable Unavailable Jumalon, M Jenny FURNACE CLERK Unavailable Unavailable Jumalon, M Jenny FURNACE CLERK Unavailable Unavailable Jumalon, M Jenny FURNACE CLERK Unavailable Unavailable Jumalon, M Jenny FURNACE CLERK Unavailable Unavailable Jumalon, M Jenny FURNACE CLERK Unavailable Unavailable Jumalon, M Jenny FURNACE CLERK Unavailable Unavailable Jumalon, M Jenny FURNACE CLERK Unavailable Unavailable Jumalon, M Jenny FURNACE CLERK Unavailable Unavailable Jumalon, M Jenny FURNACE CLERK Unavailable Unavailable Jumalon, M Jenny FURNACE CLERK Unavailable Unavailable Davonte Doran FURNACE CLERK Unavailable Unavailable Re-disclosure Warning The records that you are about to access may contain information from federally-assisted alcohol or drug abuse programs. If such information is present, then the following federally mandated warning applies: This information has been disclosed to you from records protected by federal confidentiality rules (42 CFR part 2). The federal rules prohibit you from making any further disclosure of this information unless further disclosure is expressly permitted by the written consent of the person to whom it pertains or as otherwise permitted by 42 CFR part 2. A general authorization for the release of medical or other information is NOT sufficient for this purpose. The Federal rules restrict any use of the information to criminally investigate or prosecute any alcohol or drug abuse patient.The records that you are about to access may contain highly sensitive health information, the redisclosure of which is protected by Article 27-F of the [facility] Public Health law. If you continue you may have access to information: Regarding HIV / AIDS; Provided by facilities licensed or operated by the [facility] Office of Mental Health; or Provided by the [facility] Office for People With Developmental Disabilities. If such information is present, then the following [facility] mandated warning applies: This information has been disclosed to you from confidential records which are protected by state law. State law prohibits you from making any further disclosure of this information without the specific written consent of the person to whom it pertains, or as otherwise permitted by law. Any unauthorized further disclosure in violation of state law may result in a fine or long-term sentence or both. A general authorization for the release of medical or other information is NOT sufficient authorization for further disc losure. Encounters Encounter Providers Location Date Indications Data Source(s ) Jian Collins MD: [id number] [facility] [address], [place] [address], Ph. Attender: Jian Collins MD [place] - [facility] - Main Office 08/13/2021 12:00:00 AM EDT [place] ([facility]) Jenny Doran NP: [id number] [facility] [address], [facility] [place] [address], Ph. Attender: Jenny BURKETT [place] - [facility] 07/12/2021 12:00:00 AM EDT ATHE NA ([facility]) Jian Collins MD: [address], [address], [place] [address], Ph. Attender: Jian Collins MD [place] - [facility] 07/08/2021 12:00:00 AM EDT [place] ([facility]) Jian Collins MD: [address], [address], [place] [address], Ph. Attender: Jian Collins MD [place] - [facility] 07/08/2021 12:00:00 AM EDT [place] ([facility]) Jian Collins MD: [address], [address], [place] [address], Ph. [phone] Attender: Jian Collins MD [place] - [facility] 07/02/2021 12:00:00 AM EDT [place] ([facility]) Jian Collins MD: [address], [address], [place] [address], Ph. [phone] Attender: Jian Collins MD [place] - [facility] 07/02/2021 12:00:00 AM EDT [place] ([facility]) Jian Collins MD: [address], [address], [place] [address], Ph. [phone] Attender: Jian Collins MD [place] - [facility] 07/02/2021 12:00:00 AM EDT [place] ([facility]) Jenny Doran, [employer] COMMUNICATIONS ADMINISTRATOR: [address], [address], [place] [address], Ph. Attender: Jenny Doran [facility] - [facility] 07/01/2021 12:00:00 AM EDT ATHE NA ([facility]) Jenny Doran, [employer] COMMUNICATIONS ADMINISTRATOR: [address], [place] [address], Ph. Attender: Jenny Doran [facility] - [facility] 07/01/2021 12:00:00 AM EDT ATHE NA ([facility]) Jenny Doran, [employer] COMMUNICATIONS ADMINISTRATOR: [address], [address], [place] [address], Ph. Attender: Jenny Doran [facility] - [facility] 07/01/2021 12:00:00 AM EDT ATHE NA ([facility]) Jenny Doran, [employer] COMMUNICATIONS ADMINISTRATOR: [address], [address], [place] [address], Ph. Attender: Jenny Doran [facility] - [facility] 07/01/2021 12:00:00 AM EDT ATHE NA ([facility]) Jian Collins MD: [address], [facility] [place] [address], Ph. Attender: Jian Collins MD [place] - [facility] 06/07/2021 12:00:00 AM EDT [place] ([facility]) Jian Collins MD: [address], [place] [address], Ph. Attender: Jian GLORIA - [facility] 06/07/2021 12:00:00 AM EDT [place] ([facility]) Jian Collins MD: [address], [address], [place] [address], Ph. Attender: Jian Collins MD [place] - [facility] 06/07/2021 12:00:00 AM EDT [place] ([facility]) Jian Collins MD: [address], [address], [place] [address], Ph. Attender: Jian Collins MD [place] - [facility] 06/07/2021 12:00:00 AM EDT [place] ([facility]) Jian Collins MD: [address], [place] [address], Ph. Attender: Jian Collins MD [place] - [facility] 06/07/2021 12:00:00 AM EDT [place] ([facility]) Jenny Doran, [employer] COMMUNICATIONS ADMINISTRATOR: [address], [place] [address], Ph. Attender: Jenny Doran [facility] - [facility] 05/21/2021 12:00:00 AM EDT ATHJessica REYES ([facility]) Jenny Doran, [employer] COMMUNICATIONS ADMINISTRATOR: [address], [place] [address], Ph. Attender: Jenny Doran [facility] - [facility] 05/21/2021 12:00:00 AM EDT HUSSAIN REYES ([facility]) Jenny Doran, [employer] COMMUNICATIONS ADMINISTRATOR: [address], [place] [address], Ph. Attender: Jenny Doran [facility] - [facility] 05/21/2021 12:00:00 AM EDT ATHE NA ([facility]) Jenny Doran, [employer] COMMUNICATIONS ADMINISTRATOR: [address], [place] [address], Ph. Attender: Jenny Doran [facility] - [facility] 05/21/2021 12:00:00 AM EDT ATHE NA ([facility]) Jenny Doran, [employer]UR[employer] COMMUNICATIONS ADMINISTRATOR: [address], [place] [address], Ph. Attender: Jenny Doran [facility] - [facility] 05/21/2021 12:00:00 AM EDT ATHE NA ([facility]) Jenny Doran, [employer] COMMUNICATIONS ADMINISTRATOR: [address], [place] [address], Ph. Attender: Jenny Doran [facility] - [facility] 05/21/2021 12:00:00 AM EDT ATHE NA ([facility]) Jenny Doran, CHUR[employer] COMMUNICATIONS ADMINISTRATOR: [address], [place] [address], Ph. Attender: Jenny Doran [facility] - [facility] 03/08/2021 12:00:00 AM EDT ATHE NA ([facility]) Jenny Doran, [employer]UR[employer] COMMUNICATIONS ADMINISTRATOR: [address], [place] [address], Ph. Attender: Jenny Doran [facility] - [facility] 03/08/2021 12:00:00 AM EDT ATHE NA ([facility]) Jenny Doran, CHURCH COMMUNICATIONS ADMINISTRATOR: [address], [place] [address], Ph. Attender: Jenny Doran [facility] - [facility] 03/08/2021 12:00:00 AM EDT ATHE NA ([facility]) Jenny Doran, CHUR[employer] COMMUNICATIONS ADMINISTRATOR: [address], [place] [address], Ph. Attender: Jenny Doran [facility] - [facility] 03/08/2021 12:00:00 AM EDT ATHE NA ([facility]) Jenny Doran, CHUR[employer] COMMUNICATIONS ADMINISTRATOR: [address], [place] [address], Ph. Attender: Jenny Doran [facility] - [facility] 03/08/2021 12:00:00 AM EDT ATHE NA ([facility]) Jenny Doran, [employer] COMMUNICATIONS ADMINISTRATOR: [address], [place] [address], Ph. Attender: Jenny oDran [facility] - [facility] 03/08/2021 12:00:00 AM EDT ATHE NA ([facility]) Jenny Doran, CHUR[employer] COMMUNICATIONS ADMINISTRATOR: [address], [place] [address], Ph. Attender: Jenny Doran [facility] - [facility] 03/08/2021 12:00:00 AM EDT ATHE NA ([facility]) Jian Collins MD: [address], [place] [address], Ph. Attender: Jian GLORIA - [facility] 02/19/2021 12:00:00 AM EDT [place] ([facility]) Jian Collins MD: [address], [address], [place] [address], Ph. Attender: Jian Collins MD [place] - [facility] 02/19/2021 12:00:00 AM EDT [place] ([facility]) Jian Collins MD: [address], [address], [place] [address], Ph. Attender: Jian GLORIA - [facility] 02/19/2021 12:00:00 AM EDT [place] ([facility]) Jian Collins MD: [address], [address], [place] [address], Ph. Attender: Jian GLORIA - [facility] 02/19/2021 12:00:00 AM EDT [place] ([facility]) Jian Collins MD: [address]64 [address], [address], [place] [address], Ph. Attender: Jian GLORIA - [facility] 02/19/2021 12:00:00 AM EDT [place] ([facility]) Jian Collins MD: [address], [address], [place] [address], Ph. Attender: Jian GLORIA - [facility] 02/19/2021 12:00:00 AM EDT [place] ([facility]) Jian Collins MD: [address], [address], [place] [address], Ph. Attender: Jian GLORIA - [facility] 02/19/2021 12:00:00 AM EDT [place] ([facility]) Jian Collins MD: [address], [address], [place] [address], Ph. Attender: Jian Collins MD [place] - [facility] 02/19/2021 12:00:00 AM EDT [place] ([facility]) Jenny Doran, CHUR[employer] COMMUNICATIONS ADMINISTRATOR: [address], [address], [place] [address], Ph. Attender: Jenny Doran [facility] - [facility] 02/02/2021 12:00:00 AM EDT ATHE NA ([facility]) Jenny Doran, CHUR[employer] COMMUNICATIONS ADMINISTRATOR: [address], [place] [address], Ph. Attender: Jenny Doran [facility] - [facility] 02/02/2021 12:00:00 AM EDT ATHE NA ([facility]) Jenny Doran, CHURCH COMMUNICATIONS ADMINISTRATOR: [address], [place] [address], Ph. Attender: Jenny Doran [facility] - [facility] 02/02/2021 12:00:00 AM EDT ATHE NA ([facility]) Jenny Doran, CHURCH COMMUNICATIONS ADMINISTRATOR: [address], [place] [address], Ph. Attender: Jenny Doran [facility] - [facility] 02/02/2021 12:00:00 AM EDT ATHE NA ([facility]) Jenny Doran, CHURCH COMMUNICATIONS ADMINISTRATOR: [address], [place] [address], Ph. Attender: Jenny Doran [facility] - [facility] 02/02/2021 12:00:00 AM EDT ATHE NA ([facility]) Jenny Doran, CHURCH COMMUNICATIONS ADMINISTRATOR: [address], [place] [address], Ph. Attender: Jenny Doran [facility] - [facility] 02/02/2021 12:00:00 AM EDT ATHE NA ([facility]) Jenny Doran, CHURCH COMMUNICATIONS ADMINISTRATOR: [address], [place] [address], Ph. Attender: Jenny Doran [facility] - [facility] 02/02/2021 12:00:00 AM EDT ATHE NA ([facility]) Jenny Doran, CHURCH COMMUNICATIONS ADMINISTRATOR: [address], [place] [address], Ph. Attender: Jenny Doran [facility] - [facility] 02/02/2021 12:00:00 AM EDT ATHE NA ([facility]) Jenny Doran, CHURCH COMMUNICATIONS ADMINISTRATOR: [address], [place] [address], Ph. Attender: Jenny Doran [facility] - [facility] 02/02/2021 12:00:00 AM EDT ATHE NA ([facility]) Jian Collins MD: [address]63 [address], [place] [address], Ph. Attender: Jian Collins MD [place] - [facility] 01/28/2021 12:00:00 AM EDT [place] ([facility]) Jian Collins MD: [address]99 [address], [address], [place] [address], Ph. Attender: Jian Collins MD [place] - [facility] 01/28/2021 12:00:00 AM EDT [place] ([facility]) Jian Collins MD: [address], [address], [place] [address], Ph. Attender: Jian Collins MD [place] - [facility] 01/28/2021 12:00:00 AM EDT [place] ([facility]) Jian Collins MD: [address]176 [address], [place] [address], Ph. Attender: Jian Collins MD [place] - [facility] 01/28/2021 12:00:00 AM EDT [place] ([facility]) Jian Collins MD: [address]54 [address], [place] [address], Ph. Attender: Jian GLORIA - [facility] 01/28/2021 12:00:00 AM EDT [place] ([facility]) Jian Collins MD: [address]67 [address], [place] [address], Ph. Attender: Jian GLORIA - [facility] 01/28/2021 12:00:00 AM EDT [place] ([facility]) Jian Collins MD: [address]09 [address], [place] [address], Ph. Attender: Jian GLORIA - [facility] 01/28/2021 12:00:00 AM EDT [place] ([facility]) Jian Collins MD: [address]1978 [address], [address], [place] [address], Ph. Attender: Jian Collins MD [place] - [facility] 01/28/2021 12:00:00 AM EDT [place] ([facility]) Jian Collins MD: [address]17 [address], [place] [address], Ph. Attender: Jian Collins MD [place] - [facility] 01/28/2021 12:00:00 AM EDT [place] ([facility]) Jian Collins MD: [address]307 [address], [facility] [place] [address], Ph. Attender: Jian Collins MD [place] - [facility] 01/28/2021 12:00:00 AM EDT [place] ([facility]) Jenny Doran, CHURCH COMMUNICATIONS ADMINISTRATOR: [address], [place] [address], Ph. Attender: Jenny Doran [facility] - [facility] 01/07/2021 12:00:00 AM EST ATHE NA ([facility]) Jenny Doran, CHURCH COMMUNICATIONS ADMINISTRATOR: [address], [place] [address], Ph. Attender: Jenny Doran [facility] - [facility] 01/07/2021 12:00:00 AM EST ATHE NA ([facility]) Jenny Doran, CHURCH COMMUNICATIONS ADMINISTRATOR: [address], [place] [address], Ph. Attender: Jenny Doran [facility] - [facility] 01/07/2021 12:00:00 AM EST ATHE NA ([facility]) Jenny Doran, CHURCH COMMUNICATIONS ADMINISTRATOR: [address], [place] [address], Ph. Attender: Jenny Doran [facility] - [facility] 01/07/2021 12:00:00 AM EST ATHE NA ([facility]) Jenny Doran, CHURCH COMMUNICATIONS ADMINISTRATOR: [address], [place] [address], Ph. Attender: Jenny Doran [facility] - [facility] 01/07/2021 12:00:00 AM EST ATHE NA ([facility]) Jenny Doran, CHURCH COMMUNICATIONS ADMINISTRATOR: [address], [place] [address], Ph. Attender: Jenny Doran [facility] - [facility] 01/07/2021 12:00:00 AM EST ATHE NA ([facility]) Jenny Doran, CHURCH COMMUNICATIONS ADMINISTRATOR: [address], [place] [address], Ph. Attender: Jenny Doran [facility] - [facility] 01/07/2021 12:00:00 AM EST ATHE NA ([facility]) Jenny Doran, CHURCH COMMUNICATIONS ADMINISTRATOR: [address], [place] [address], Ph. Attender: Jenny Doran [facility] - [facility] 01/07/2021 12:00:00 AM EST ATHE NA ([facility]) Jenny Doran, CHURCH COMMUNICATIONS ADMINISTRATOR: [address], [place] [address], Ph. Attender: Jennymelissa Doran [facility] - [facility] 01/07/2021 12:00:00 AM EST ATHE NA ([facility]) Jenny Doran, CHURCH COMMUNICATIONS ADMINISTRATOR: [address], [place] [address], Ph. Attender: Jenny Doran [facility] - [facility] 01/07/2021 12:00:00 AM EST ATHE NA ([facility]) Jenny Doran, CHURCH COMMUNICATIONS ADMINISTRATOR: [address], [address], [place] [address], Ph. Attender: Jenny Doran [facility] - [facility] 01/07/2021 12:00:00 AM EST ATHE NA ([facility]) Jian Collins MD: [address]76 [address], [place] [address], Ph. Attender: Jian Collins MD [place] - [facility] [facility] 12/23/2020 12:00:00 AM EST GIBS[facility] ([facility]) Jian Collins MD: [address], [place] [address], Ph. Attender: Jian GLORIA - [facility] 12/23/2020 12:00:00 AM EST [facility]BS[facility] ([facility]) Jian Collins MD: [address], [address], [place] [address], Ph. Attender: Jian GLORIA - [facility] 12/23/2020 12:00:00 AM EST GIBSON ([facility]) Jian Collins MD: [address], [place] [address], Ph. Attender: Jian GLORIA - [facility] 12/23/2020 12:00:00 AM EST [facility]BSON ([facility]) Jian Collins MD: [address], [place] [address], Ph. Attender: Jian GLORIA - [facility] 12/23/2020 12:00:00 AM EST GIBSON ([facility]) Jian Collins MD: [address], [address], [place] [address], Ph. Attender: Jian GLORIA - [facility] 12/23/2020 12:00:00 AM EST GIBSON ([facility]) Jian Collins MD: [address], [place] [address], Ph. Attender: Jian GLORIA - [facility] 12/23/2020 12:00:00 AM EST GIBSON ([facility]) Jian Collins MD: [address], [place] [address], Ph. Attender: Jian GLORIA - [facility] 12/23/2020 12:00:00 AM EST [facility] ([facility]) Jian Collins MD: [address], [address], [place] [address], Ph. Attender: Jian GLORIA - [facility] 12/23/2020 12:00:00 AM EST GIBSON ([facility]) Jian Collins MD: [address], [address], [place] [address], Ph. Attender: Jian Collins MD [place] - [facility] 12/23/2020 12:00:00 AM EST [facility] ([facility]) Jian Collins MD: [address], [place] [address], Ph. Attender: Jian Collins MD [place] - [facility] 12/23/2020 12:00:00 AM EST [facility] ([facility]) Jian Collins MD: [address], [address], [place] [address], Ph. Attender: Jian Collins MD [place] - [facility] 12/23/2020 12:00:00 AM EST [facility]ON ([facility]) Jenny Doran, [employer] ADMINISTRATOR: [address], [place] [address], Ph. Attender: Jenny Doran [facility] - [facility] 12/09/2020 12:00:00 AM EST ATHE NA ([facility]) Jenny Doran, [employer] COMMUNICATION[employer] ADMINISTRATOR: [address], [place] [address], Ph. Attender: Jenny Doran [facility] - [facility] 12/09/2020 12:00:00 AM EST ATHE NA ([facility]) Jenny Doran, [employer] COMMUNICATION[employer] ADMINISTRATOR: [address], [place] [address], Ph. Attender: Jenny Doran [facility] - [facility] 12/09/2020 12:00:00 AM EST ATHE NA ([facility]) Jenny Doran, [employer] COMMUN[employer] ADMINISTRATOR: [address], [place] [address], Ph. Attender: Jenny Doran [facility] - [facility] 12/09/2020 12:00:00 AM EST ATHE NA ([facility]) Jenny Doran, [employer] COMMUNICATION[employer] ADMINISTRATOR: [address], [place] [address], Ph. Attender: Jenny Doran [facility] - [facility] 12/09/2020 12:00:00 AM EST ATHE NA ([facility]) Jenny Doran, [employer] COMMUNICATION[employer] ADMINISTRATOR: [address], [place] [address], Ph. Attender: Jenny Doran [facility] - [facility] 12/09/2020 12:00:00 AM EST ATHE NA ([facility]) Jenny Doran, [employer] COMMUNICATION[employer] ADMINISTRATOR: [address], [place] [address], Ph. Attender: Jenny Doran [facility] - [facility] 12/09/2020 12:00:00 AM EST ATHE NA ([facility]) Jenny Doran, [employer] COMMUNICATION[employer] ADMINISTRATOR: [address], [facility] [place] [address], Ph. Attender: Jenny Doran [facility] - [facility] 12/09/2020 12:00:00 AM EST ATHE NA ([facility]) Jenny Doran, [employer] COMMUNICATIONS ADMINISTRATOR: [address], [place] [address], Ph. Attender: Jenny Doran [facility] - [facility] 12/09/2020 12:00:00 AM EST ATHE NA ([facility]) Jenny Doran, [employer] COMMUNICATION[employer] ADMINISTRATOR: [address], [place] [address], Ph. Attender: Jenny Doran [facility] - [facility] 12/09/2020 12:00:00 AM EST ATHE NA ([facility]) Jenny Doran, [employer] COMMUNICATION[employer] ADMINISTRATOR: [address], [place] [address], Ph. Attender: Jenny Doran [facility] - [facility] 12/09/2020 12:00:00 AM EST ATHE NA ([facility]) Jenny Doran, [employer] COMMUNICATION[employer] ADMINISTRATOR: [address], [place] [address], Ph. Attender: Jenny Doran [facility] - [facility] 12/09/2020 12:00:00 AM EST ATHE NA ([facility]) Jenny Doran, [employer] COMMUNICATION[employer] ADMINISTRATOR: [address], [place] [address], Ph. Attender: Jenny Doran [facility] - [facility] 12/09/2020 12:00:00 AM EST ATHE NA ([facility]) Medications No Information Insurance Providers Payer name Policy type / Coverage type Policy ID Covered republican ID Covered republican's relationship to eisenberg Policy Eisenberg Plan Information [facility] F [id number] SELF [id number] [facility] ACTIVE DUTY [id number] SP [id number] [facility] HUMANA - O/P [id number] 18 [id number] HUMANA [facility] REG O [id number] S [id number] Problems, Conditions, and Diagnoses No Information Surgeries/Procedures No Information Results ID Date Data Source [id number] 07/02/2021 12:00:00 AM EDT [facility] ([facility]) Name Value Range Interpretation Code Description Data Prachi rce(s) Supporting Document(s) SARS-CoV-2 (COVID-19) RNA [Presence] in Respiratory specimen by FREDY with probe detection negative negative Sars-cov-2 [facility] ([facility]) ID Date Data Source [id number] 07/02/2021 12:00:00 AM EDT [facility] ([facility]) Name Value Range Interpretation Code Description Data Prachi rce(s) Supporting Document(s) ID Date Data Source [id number] 07/02/2021 12:00:00 AM EDT [facility] Name Value Range Interpretation Code Description Data Prachi rce(s) Supporting Document(s) SARS-CoV-2 NEGATIVE [facility] This lab was ordered by [facility] and reported by [facility]. ID Date Data Source [id number] 07/02/2021 12:00:00 AM EDT [facility] ([facility]) Name Value Range Interpretation Code Description Data Prachi rce(s) Supporting Document(s) SARS-CoV-2 (COVID-19) RNA [Presence] in Respiratory specimen by FREDY with probe detection negative negative Sars-cov-2 [facility] ([facility]) ID Date Data Source [id number] 07/02/2021 12:00:00 AM EDT [facility] ([facility]) Name Value Range Interpretation Code Description Data Prachi rce(s) Supporting Document(s) ID Date Data Source [id number] 02/15/2021 10:40:00 AM EDT [facility] Name Value Range Interpretation Code Description Data Prachi rce(s) Supporting Document(s) SARS coronavirus 2 RNA Not Detected [facility] This lab was ordered by [facility] and reported by [facility]. ID Date Data Source [id number] 01/25/2021 08:46:00 AM EDT [facility] Name Value Range Interpretation Code Description Data Prachi rce(s) Supporting Document(s) SARS coronavirus 2 RNA Not Detected [facility] [place] This lab was ordered by [facility] and reported by [facility]. ID Date Data Source [id number] 12/18/2020 09:30:00 AM EST [facility] Name Value Range Interpretation Code Description Data Prachi rce(s) Supporting Document(s) SARS coronavirus 2 RNA Not Detected [facility] [place] This lab was ordered by [facility] and reported by [facility]. Procedure Social History No Information Vital Signs ID Date Data Source UNK Name Value Range Interpretation Code Description Data Source(s) Diastolic blood pressure 92 mm[Hg] 92 mm[Hg] [facility] ([facility]) Body height 69 [in_i] 69 [in_i] [facility] ([facility]) Systolic blood pressure 140 mm[Hg] 140 mm[Hg] A THENA ([facility]) Diastolic blood pressure 93 mm[Hg] 93 mm[Hg] [facility] ([facility]) Diastolic blood pressure 93 mm[Hg] 93 mm[Hg] [facility] ([facility]) Body height 69 [in_i] 69 [in_i] [facility] ([facility]) Systolic blood pressure 161 mm[Hg] 161 mm[Hg] A [facility]NA ([facility]) Body height 69 [in_i] 69 [in_i] [facility] ([facility]) Systolic blood pressure 161 mm[Hg] 161 mm[Hg] A THENA ([facility]) Diastolic blood pressure 93 mm[Hg] 93 mm[Hg] [facility] ([facility]) Body height 69 [in_i] 69 [in_i] [facility] ([facility]) Systolic blood pressure 161 mm[Hg] 161 mm[Hg] A [facility] ([facility]) Diastolic blood pressure 93 mm[Hg] 93 mm[Hg] [facility] ([facility]) Body height 69 [in_i] 69 [in_i] [facility] ([facility]) Systolic blood pressure 161 mm[Hg] 161 mm[Hg] A [facility]NA ([facility]) Diastolic blood pressure 85 mm[Hg] 85 mm[Hg] [facility] ([facility]) Body height 69 [in_i] 69 [in_i] [facility] ([facility]) Systolic blood pressure 134 mm[Hg] 134 mm[Hg] A THENA ([facility]) Diastolic blood pressure 85 mm[Hg] 85 mm[Hg] [facility] ([facility]) Body height 69 [in_i] 69 [in_i] [facility] ([facility]) Systolic blood pressure 134 mm[Hg] 134 mm[Hg] A THENA ([facility]) Diastolic blood pressure 85 mm[Hg] 85 mm[Hg] [facility] ([facility]) Body height 69 [in_i] 69 [in_i] [facility] ([facility]) Systolic blood pressure 134 mm[Hg] 134 mm[Hg] A [facility] ([facility]) Diastolic blood pressure 85 mm[Hg] 85 mm[Hg] [facility] ([facility]) Body height 69 [in_i] 69 [in_i] [facility] ([facility]) Systolic blood pressure 134 mm[Hg] 134 mm[Hg] A THENA ([facility]) Diastolic blood pressure 85 mm[Hg] 85 mm[Hg] [facility] ([facility]) Body height 69 [in_i] 69 [in_i] [facility] ([facility]) Systolic blood pressure 134 mm[Hg] 134 mm[Hg] A THENA ([facility]) Diastolic blood pressure 85 mm[Hg] 85 mm[Hg] [facility] ([facility]) Body height 69 [in_i] 69 [in_i] [facility] ([facility]) Systolic blood pressure 134 mm[Hg] 134 mm[Hg] A THENA ([facility]) Diastolic blood pressure 85 mm[Hg] 85 mm[Hg] [facility] ([facility]) Body height 69 [in_i] 69 [in_i] [facility] ([facility]) Systolic blood pressure 135 mm[Hg] 135 mm[Hg] A THENA ([facility]) Diastolic blood pressure 85 mm[Hg] 85 mm[Hg] [facility] ([facility]) Body height 69 [in_i] 69 [in_i] [facility] ([facility]) Systolic blood pressure 135 mm[Hg] 135 mm[Hg] A THENA ([facility]) Diastolic blood pressure 85 mm[Hg] 85 mm[Hg] [facility] ([facility]) Body height 69 [in_i] 69 [in_i] [facility] ([facility]) Systolic blood pressure 135 mm[Hg] 135 mm[Hg] A THENA ([facility]) Diastolic blood pressure 85 mm[Hg] 85 mm[Hg] [facility] ([facility]) Body height 69 [in_i] 69 [in_i] [facility] ([facility]) Systolic blood pressure 135 mm[Hg] 135 mm[Hg] A THENA ([facility]) Diastolic blood pressure 85 mm[Hg] 85 mm[Hg] [facility] ([facility]) Body height 69 [in_i] 69 [in_i] [facility] ([facility]) Systolic blood pressure 135 mm[Hg] 135 mm[Hg] A THENA ([facility]) Diastolic blood pressure 85 mm[Hg] 85 mm[Hg] [facility] ([facility]) Body height 69 [in_i] 69 [in_i] [facility] ([facility]) Systolic blood pressure 135 mm[Hg] 135 mm[Hg] A THENA ([facility]) Diastolic blood pressure 85 mm[Hg] 85 mm[Hg] [facility] ([facility]) Body height 69 [in_i] 69 [in_i] [facility] ([facility]) Systolic blood pressure 135 mm[Hg] 135 mm[Hg] A THENA ([facility]) Diastolic blood pressure 70 mm[Hg] 70 mm[Hg] [facility] ([facility]) Body height 69 [in_i] 69 [in_i] [facility] ([facility]) Systolic blood pressure 104 mm[Hg] 104 mm[Hg] A THENA ([facility]) Diastolic blood pressure 70 mm[Hg] 70 mm[Hg] [facility] ([facility]) Body height 69 [in_i] 69 [in_i] [facility] ([facility]) Systolic blood pressure 104 mm[Hg] 104 mm[Hg] A THENA ([facility]) Diastolic blood pressure 70 mm[Hg] 70 mm[Hg] [facility] ([facility]) Diastolic blood pressure 70 mm[Hg] 70 mm[Hg] [facility] ([facility]) Body height 69 [in_i] 69 [in_i] [facility] ([facility]) Systolic blood pressure 104 mm[Hg] 104 mm[Hg] A THENA ([facility]) Body height 69 [in_i] 69 [in_i] [facility] ([facility]) Systolic blood pressure 104 mm[Hg] 104 mm[Hg] A THENA ([facility]) Diastolic blood pressure 70 mm[Hg] 70 mm[Hg] [facility] ([facility]) Body height 69 [in_i] 69 [in_i] [facility] ([facility]) Systolic blood pressure 104 mm[Hg] 104 mm[Hg] A THENA ([facility]) Diastolic blood pressure 70 mm[Hg] 70 mm[Hg] [facility] ([facility]) Body height 69 [in_i] 69 [in_i] [facility] ([facility]) Systolic blood pressure 104 mm[Hg] 104 mm[Hg] A THENA ([facility]) Diastolic blood pressure 70 mm[Hg] 70 mm[Hg] [facility] ([facility]) Body height 69 [in_i] 69 [in_i] [facility] ([facility]) Systolic blood pressure 104 mm[Hg] 104 mm[Hg] A THENA ([facility]) Diastolic blood pressure 70 mm[Hg] 70 mm[Hg] [facility] ([facility]) Body height 69 [in_i] 69 [in_i] [facility] ([facility]) Systolic blood pressure 104 mm[Hg] 104 mm[Hg] A THENA ([facility]) Diastolic blood pressure 70 mm[Hg] 70 mm[Hg] [facility] ([facility]) Body height 69 [in_i] 69 [in_i] [facility] ([facility]) Systolic blood pressure 104 mm[Hg] 104 mm[Hg] A THENA ([facility]) Diastolic blood pressure 84 mm[Hg] 84 mm[Hg] [facility] ([facility]) Body height 69 [in_i] 69 [in_i] [facility] ([facility]) Systolic blood pressure 121 mm[Hg] 121 mm[Hg] A THENA ([facility]) Diastolic blood pressure 84 mm[Hg] 84 mm[Hg] [facility] ([facility]) Body height 69 [in_i] 69 [in_i] [facility] ([facility]) Systolic blood pressure 121 mm[Hg] 121 mm[Hg] A THENA ([facility]) Systolic blood pressure 121 mm[Hg] 121 mm[Hg] A THENA ([facility]) Diastolic blood pressure 84 mm[Hg] 84 mm[Hg] [facility] ([facility]) Body height 69 [in_i] 69 [in_i] [facility] ([facility]) Diastolic blood pressure 84 mm[Hg] 84 mm[Hg] [facility] ([facility]) Body height 69 [in_i] 69 [in_i] [facility] ([facility]) Systolic blood pressure 121 mm[Hg] 121 mm[Hg] A THENA ([facility]) Body height 69 [in_i] 69 [in_i] [facility] ([facility]) Systolic blood pressure 121 mm[Hg] 121 mm[Hg] A THENA ([facility]) Diastolic blood pressure 84 mm[Hg] 84 mm[Hg] [facility] ([facility]) Diastolic blood pressure 84 mm[Hg] 84 mm[Hg] [facility] ([facility]) Body height 69 [in_i] 69 [in_i] [facility] ([facility]) Systolic blood pressure 121 mm[Hg] 121 mm[Hg] A THENA ([facility]) Diastolic blood pressure 84 mm[Hg] 84 mm[Hg] [facility] ([facility]) Diastolic blood pressure 84 mm[Hg] 84 mm[Hg] [facility] ([facility]) Body height 69 [in_i] 69 [in_i] [facility] ([facility]) Systolic blood pressure 121 mm[Hg] 121 mm[Hg] A THENA ([facility]) Body height 69 [in_i] 69 [in_i] [facility] ([facility]) Systolic blood pressure 121 mm[Hg] 121 mm[Hg] A THENA ([facility]) Diastolic blood pressure 84 mm[Hg] 84 mm[Hg] [facility] ([facility]) Body height 69 [in_i] 69 [in_i] [facility] ([facility]) Systolic blood pressure 121 mm[Hg] 121 mm[Hg] A THENA ([facility]) Systolic blood pressure 121 mm[Hg] 121 mm[Hg] A THENA ([facility]) Diastolic blood pressure 84 mm[Hg] 84 mm[Hg] [facility] ([facility]) Body height 69 [in_i] 69 [in_i] [facility] ([facility]) Systolic blood pressure 121 mm[Hg] 121 mm[Hg] A THENA ([facility]) Diastolic blood pressure 84 mm[Hg] 84 mm[Hg] [facility] ([facility]) Body height 69 [in_i] 69 [in_i] [facility] ([facility]) Diastolic blood pressure 84 mm[Hg] 84 mm[Hg] [facility] ([facility]) Body height 69 [in_i] 69 [in_i] [facility] ([facility]) Systolic blood pressure 132 mm[Hg] 132 mm[Hg] A THENA ([facility]) Diastolic blood pressure 84 mm[Hg] 84 mm[Hg] [facility] ([facility]) Body height 69 [in_i] 69 [in_i] [facility] ([facility]) Systolic blood pressure 132 mm[Hg] 132 mm[Hg] A THENA ([facility]) Diastolic blood pressure 84 mm[Hg] 84 mm[Hg] [facility] ([facility]) Body height 69 [in_i] 69 [in_i] [facility] ([facility]) Systolic blood pressure 132 mm[Hg] 132 mm[Hg] A THENA ([facility]) Diastolic blood pressure 84 mm[Hg] 84 mm[Hg] [facility] ([facility]) Body height 69 [in_i] 69 [in_i] [facility] ([facility]) Systolic blood pressure 132 mm[Hg] 132 mm[Hg] A THENA ([facility]) Diastolic blood pressure 84 mm[Hg] 84 mm[Hg] [facility] ([facility]) Body height 69 [in_i] 69 [in_i] [facility] ([facility]) Systolic blood pressure 132 mm[Hg] 132 mm[Hg] A THENA ([facility]) Diastolic blood pressure 84 mm[Hg] 84 mm[Hg] [facility] ([facility]) Body height 69 [in_i] 69 [in_i] [facility] ([facility]) Systolic blood pressure 132 mm[Hg] 132 mm[Hg] A THENA ([facility]) Diastolic blood pressure 84 mm[Hg] 84 mm[Hg] [facility] ([facility]) Body height 69 [in_i] 69 [in_i] [facility] ([facility]) Systolic blood pressure 132 mm[Hg] 132 mm[Hg] A THENA ([facility]) Diastolic blood pressure 84 mm[Hg] 84 mm[Hg] [facility] ([facility]) Body height 69 [in_i] 69 [in_i] [facility] ([facility]) Systolic blood pressure 132 mm[Hg] 132 mm[Hg] A THENA ([facility]) Diastolic blood pressure 84 mm[Hg] 84 mm[Hg] [facility] ([facility]) Body height 69 [in_i] 69 [in_i] [facility] ([facility]) Systolic blood pressure 132 mm[Hg] 132 mm[Hg] A THENA ([facility]) Diastolic blood pressure 84 mm[Hg] 84 mm[Hg] [facility] ([facility]) Body height 69 [in_i] 69 [in_i] [facility] ([facility]) Systolic blood pressure 132 mm[Hg] 132 mm[Hg] A THENA ([facility]) Diastolic blood pressure 84 mm[Hg] 84 mm[Hg] [facility] ([facility]) Body height 69 [in_i] 69 [in_i] [facility] ([facility]) Systolic blood pressure 132 mm[Hg] 132 mm[Hg] A THENA ([facility]) Diastolic blood pressure 84 mm[Hg] 84 mm[Hg] [facility] ([facility]) Body height 69 [in_i] 69 [in_i] [facility] ([facility]) Systolic blood pressure 132 mm[Hg] 132 mm[Hg] A THENA ([facility]) Diastolic blood pressure 84 mm[Hg] 84 mm[Hg] [facility] ([facility]) Body height 69 [in_i] 69 [in_i] [facility] ([facility]) Systolic blood pressure 132 mm[Hg] 132 mm[Hg] A THENA ([facility])
--- OUTSIDE RECORDS SUMMARY | 2021-08-22 16:43 | CCD ---
Author Organization Unknown Address [address] [place] [address] Phone [phone] Care Team Providers Care Boat Pilot Name Role Phone [facility] 3 [phone] Allergies Code Code System Name Reaction Severity Status Onset NKDA Medications Name Status Start Date Stop Date Cymbalta 30 mg capsule,delayed release Take 1 capsule every day by oral route. 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 [employer]: [address] [place] [address] Past Encounters 06/07/2021 Myofascial Pain; Lumbosacral Spondylosis without Myelopathy; Degeneration of Lumbar Intervertebral Disc; Degeneration of Lumbosacral Intervertebral Disc; Displacement of Lumbar Intervertebral Disc without Myelopathy; Intervertebral Disc Disorder; Spondylosis without Myelopathy; Spondylolysis; Inflammation of Sacroiliac Joint Jian Collins MD: [address] [facility], [address], [place] [address], Ph. 05/21/2021 Lumbosacral Spondylosis without Myelopathy; Degeneration of Lumbar Intervertebral Disc; Degeneration of Lumbosacral Intervertebral Disc; Displacement of Lumbar Intervertebral Disc without Myelopathy; Intervertebral Disc Disorder; Spondylosis without Myelopathy; Spondylolysis; Inflammation of Sacroiliac Joint; Myofascial Pain Jenny Doran, MODERN LANGUAGES PROFESSOR: [address] [address], Ph. 03/08/2021 Lumbosacral Spondylosis without Myelopathy; Degeneration of Lumbar Intervertebral Disc; Degeneration of Lumbosacral Intervertebral Disc; Displacement of Lumbar Intervertebral Disc without Myelopathy; Intervertebral Disc Disorder; Spondylosis without Myelopathy; Spondylolysis; Inflammation of Sacroiliac Joint Jenny Doran, MODERN LANGUAGES PROFESSOR: [address] [address], Ph. 02/19/2021 Lumbosacral Spondylosis without Myelopathy; Spondylosis without Myelopathy; Degeneration of Lumbar Intervertebral Disc; Degeneration of Lumbosacral Intervertebral Disc; Displacement of Lumbar Intervertebral Disc without Myelopathy; Intervertebral Disc Disorder; Spondylolysis; Inflammation of Sacroiliac Joint Jian Collins MD: [id number] [address], Ph. 02/02/2021 Lumbosacral Spondylosis without Myelopathy; Degeneration of Lumbar Intervertebral Disc; Degeneration of Lumbosacral Intervertebral Disc; Displacement of Lumbar Intervertebral Disc without Myelopathy; Intervertebral Disc Disorder; Spondylosis without Myelopathy; Spondylolysis; Inflammation of Sacroiliac Joint Jenny Doran, MODERN LANGUAGES PROFESSOR: [address] [address], Ph. 01/28/2021 Lumbosacral Spondylosis without Myelopathy; Spondylosis without Myelopathy; Degeneration of Lumbar Intervertebral Disc; Degeneration of Lumbosacral Intervertebral Disc; Displacement of Lumbar Intervertebral Disc without Myelopathy; Intervertebral Disc Disorder; Spondylolysis; Inflammation of Sacroiliac Joint Jian Collins MD: [address] [address], Ph. 01/07/2021 Lumbosacral Spondylosis without Myelopathy; Degeneration of Lumbar Intervertebral Disc; Degeneration of Lumbosacral Intervertebral Disc; Displacement of Lumbar Intervertebral Disc without Myelopathy; Intervertebral Disc Disorder; Spondylosis without Myelopathy; Spondylolysis; Inflammation of Sacroiliac Joint Jenny Doran, MODERN LANGUAGES PROFESSOR: [address] [address], [place] [address], Ph. 12/23/2020 Inflammation of Sacroiliac Joint; Lumbosacral Spondylosis without Myelopathy; Degeneration of Lumbar Intervertebral Disc; Degeneration of Lumbosacral Intervertebral Disc; Displacement of Lumbar Intervertebral Disc without Myelopathy; Intervertebral Disc Disorder; Spondylosis without Myelopathy; Spondylolysis Jian Collins MD: [address] [address], Ph. 12/09/2020 Lumbosacral Spondylosis without Myelopathy; Degeneration of Lumbar Intervertebral Disc; Degeneration of Lumbosacral Intervertebral Disc; Displacement of Lumbar Intervertebral Disc without Myelopathy; Intervertebral Disc Disorder; Spondylosis without Myelopathy; Spondylolysis; Inflammation of Sacroiliac Joint Jenny Rolandgisellakris Doran, MODERN LANGUAGES PROFESSOR: [id number] [address], Ph. 05/21/2020 Lumbosacral Spondylosis without Myelopathy; Degeneration of Lumbar Intervertebral Disc; Degeneration of Lumbosacral Intervertebral Disc; Displacement of Lumbar Intervertebral Disc without Myelopathy; Intervertebral Disc Disorder; Spondylosis without Myelopathy; Spondylolysis; Inflammation of Sacroiliac Joint Jenny Nadege Espinoza, MODERN LANGUAGES PROFESSOR: [address] [address], Ph. 05/06/2020 Inflammation of Sacroiliac Joint; Lumbosacral Spondylosis without Myelopathy; Degeneration of Lumbar Intervertebral Disc; Degeneration of Lumbosacral Intervertebral Disc; Displacement of Lumbar Intervertebral Disc without Myelopathy; Intervertebral Disc Disorder; Spondylosis without Myelopathy; Spondylolysis Jian Collins MD: [address] [address], Ph. 05/01/2020 Pre-surgery Testing; Viral Screening Jian Collins MD: [address] [address], [facility] [place] [address], Ph. [phone] 03/09/2020 Lumbosacral Spondylosis without Myelopathy; Degeneration of Lumbar Intervertebral Disc; Degeneration of Lumbosacral Intervertebral Disc; Displacement of Lumbar Intervertebral Disc without Myelopathy; Intervertebral Disc Disorder; Spondylosis without Myelopathy; Spondylolysis; Inflammation of Sacroiliac Joint Jenny Doran, MODERN LANGUAGES PROFESSOR: [address] [address], [facility] [place] [address], Ph. 02/10/2020 Lumbosacral Spondylosis without Myelopathy; Degeneration of Lumbar Intervertebral Disc; Degeneration of Lumbosacral Intervertebral Disc; Displacement of Lumbar Intervertebral Disc without Myelopathy; Intervertebral Disc Disorder; Spondylosis without Myelopathy; Spondylolysis Jenny Doran MODERN LANGUAGES PROFESSOR: [address] [address], Ph. 01/10/2020 Lumbosacral Spondylosis without Myelopathy; Spondylosis without Myelopathy; Degeneration of Lumbar Intervertebral Disc; Degeneration of Lumbosacral Intervertebral Disc; Displacement of Lumbar Intervertebral Disc without Myelopathy; Intervertebral Disc Disorder; Spondylolysis Jian Collins MD: [address] [address], Ph. 12/26/2019 Lumbosacral Spondylosis without Myelopathy; Spondylosis without Myelopathy; Degeneration of Lumbar Intervertebral Disc; Degeneration of Lumbosacral Intervertebral Disc; Displacement of Lumbar Intervertebral Disc without Myelopathy; Intervertebral Disc Disorder; Spondylolysis Jian Collins MD: [address] [address], Ph. 12/04/2019 Lumbosacral Spondylosis without Myelopathy; Degeneration of Lumbar Intervertebral Disc; Degeneration of Lumbosacral Intervertebral Disc; Displacement of Lumbar Intervertebral Disc without Myelopathy; Intervertebral Disc Disorder; Spondylosis without Myelopathy; Spondylolysis Jenny Doran MODERN LANGUAGES PROFESSOR: [address] [place] [address], Ph. 11/28/2019 Lumbosacral Spondylosis without Myelopathy; Spondylosis without Myelopathy; Degeneration of Lumbosacral Intervertebral Disc; Degeneration of Lumbar Intervertebral Disc; Intervertebral Disc Disorder; Displacement of Lumbar Intervertebral Disc without Myelopathy Jian Collins MD: [address] [address], [place] [address], Ph. 11/07/2019 Intervertebral Disc Disorder; Displacement of Lumbar Intervertebral Disc without Myelopathy; Degeneration of Lumbosacral Intervertebral Disc; Degeneration of Lumbar Intervertebral Disc; Lumbosacral Spondylosis without Myelopathy; Spondylosis without Myelopathy Jian Collins MD: [address] [address], Ph. 10/03/2019 Intervertebral Disc Disorder; Displacement of Lumbar Intervertebral Disc without Myelopathy; Degeneration of Lumbosacral Intervertebral Disc; Degeneration of Lumbar Intervertebral Disc; Lumbosacral Spondylosis without Myelopathy; Spondylosis without Myelopathy Jian Collins MD: [address] [address], Ph. 09/12/2019 Intervertebral Disc Disorder; Displacement of Lumbar Intervertebral Disc without Myelopathy; Degeneration of Lumbosacral Intervertebral Disc; Degeneration of Lumbar Intervertebral Disc; Lumbosacral Spondylosis without Myelopathy; Spondylosis without Myelopathy Jian Collins MD: [address] [address], Ph. 08/29/2019 Lumbosacral Spondylosis without Myelopathy; Spondylosis without Myelopathy; Degeneration of Lumbar Intervertebral Disc; Degeneration of Lumbosacral Intervertebral Disc; Displacement of Lumbar Intervertebral Disc without Myelopathy; Intervertebral Disc Disorder Jian Collins MD: [address] [address], Ph. 08/28/2019 Lumbosacral Spondylosis without Myelopathy; Degeneration of Lumbar Intervertebral Disc; Degeneration of Lumbosacral Intervertebral Disc; Displacement of Lumbar Intervertebral Disc without Myelopathy; Intervertebral Disc Disorder; Spondylosis without Myelopathy; Spondylolysis Jenny Doran, MODERN LANGUAGES PROFESSOR: [address], [place] [address], Ph. 08/05/2019 Lumbosacral Spondylosis without Myelopathy Jian Collins MD: [address], [place] [address], Ph. Social History Tobacco Smoking Status Never Smoker Vaccine List None recorded. Plan of Care Reminders Provider Appointments None recorded. Lab None recorded. Referral None recorded. Procedures None recorded. Surgeries None recorded. Imaging None recorded. Vitals 05/21/2021 11:15AM FOLLOW-UP Height Blood Pressure 5 [...]
--- OUTSIDE RECORDS SUMMARY | 2021-08-22 16:43 | CCD ---
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 [employer]: [address] [place] [address] Past Encounters 07/01/2021 Lumbosacral Spondylosis without Myelopathy; Degeneration of Lumbar Intervertebral Disc; Degeneration of Lumbosacral Intervertebral Disc; Displacement of Lumbar Intervertebral Disc without Myelopathy; Intervertebral Disc Disorder; Spondylosis without Myelopathy; Spondylolysis; Inflammation of Sacroiliac Joint; Myofascial Pain Jenny Doran AIR HOLE DRILLER: [address], [place] [address], Ph. 06/07/2021 Myofascial Pain; Lumbosacral Spondylosis without Myelopathy; Degeneration of Lumbar Intervertebral Disc; Degeneration of Lumbosacral Intervertebral Disc; Displacement of Lumbar Intervertebral Disc without Myelopathy; Intervertebral Disc Disorder; Spondylosis without Myelopathy; Spondylolysis; Inflammation of Sacroiliac Joint Jian Collins MD: [address] [address], Ph. 05/21/2021 Lumbosacral Spondylosis without Myelopathy; Degeneration of Lumbar Intervertebral Disc; Degeneration of Lumbosacral Intervertebral Disc; Displacement of Lumbar Intervertebral Disc without Myelopathy; Intervertebral Disc Disorder; Spondylosis without Myelopathy; Spondylolysis; Inflammation of Sacroiliac Joint; Myofascial Pain Jenny Doran, AIR HOLE DRILLER: [address] [address], Ph. 03/08/2021 Lumbosacral Spondylosis without Myelopathy; Degeneration of Lumbar Intervertebral Disc; Degeneration of Lumbosacral Intervertebral Disc; Displacement of Lumbar Intervertebral Disc without Myelopathy; Intervertebral Disc Disorder; Spondylosis without Myelopathy; Spondylolysis; Inflammation of Sacroiliac Joint Jenny Doran, AIR HOLE DRILLER: [address] [address], Ph. 02/19/2021 Lumbosacral Spondylosis without Myelopathy; Spondylosis without Myelopathy; Degeneration of Lumbar Intervertebral Disc; Degeneration of Lumbosacral Intervertebral Disc; Displacement of Lumbar Intervertebral Disc without Myelopathy; Intervertebral Disc Disorder; Spondylolysis; Inflammation of Sacroiliac Joint Jian Collins MD: [address] [address], Ph. 02/02/2021 Lumbosacral Spondylosis without Myelopathy; Degeneration of Lumbar Intervertebral Disc; Degeneration of Lumbosacral Intervertebral Disc; Displacement of Lumbar Intervertebral Disc without Myelopathy; Intervertebral Disc Disorder; Spondylosis without Myelopathy; Spondylolysis; Inflammation of Sacroiliac Joint Jenny Doran, AIR HOLE DRILLER: [address] [address], Ph. 01/28/2021 Lumbosacral Spondylosis without Myelopathy; Spondylosis without Myelopathy; Degeneration of Lumbar Intervertebral Disc; Degeneration of Lumbosacral Intervertebral Disc; Displacement of Lumbar Intervertebral Disc without Myelopathy; Intervertebral Disc Disorder; Spondylolysis; Inflammation of Sacroiliac Joint Jian Collins MD: [address] [address], Ph. 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 12/23/2020 Inflammation of Sacroiliac Joint; Lumbosacral Spondylosis without Myelopathy; Degeneration of Lumbar Intervertebral Disc; Degeneration of Lumbosacral Intervertebral Disc; Displacement of Lumbar Intervertebral Disc without Myelopathy; Intervertebral Disc Disorder; Spondylosis without Myelopathy; Spondylolysis Jian Collins MD: [address] [address], Ph. 12/09/2020 Lumbosacral Spondylosis without Myelopathy; Degeneration of Lumbar Intervertebral Disc; Degeneration of Lumbosacral Intervertebral Disc; Displacement of Lumbar Intervertebral Disc without Myelopathy; Intervertebral Disc Disorder; Spondylosis without Myelopathy; Spondylolysis; Inflammation of Sacroiliac Joint Jenny Stacysonkris Simson, AIR HOLE DRILLER: [address] [address], Ph. 05/21/2020 Lumbosacral Spondylosis without Myelopathy; Degeneration of Lumbar Intervertebral Disc; Degeneration of Lumbosacral Intervertebral Disc; Displacement of Lumbar Intervertebral Disc without Myelopathy; Intervertebral Disc Disorder; Spondylosis without Myelopathy; Spondylolysis; Inflammation of Sacroiliac Joint Jenny Stacysonkris Doran, AIR HOLE DRILLER: [address] [address], Ph. 05/06/2020 Inflammation of Sacroiliac Joint; Lumbosacral Spondylosis without Myelopathy; Degeneration of Lumbar Intervertebral Disc; Degeneration of Lumbosacral Intervertebral Disc; Displacement of Lumbar Intervertebral Disc without Myelopathy; Intervertebral Disc Disorder; Spondylosis without Myelopathy; Spondylolysis Jian Collins MD: [address] [address], Ph. 05/01/2020 Pre-surgery Testing; Viral Screening Jian Collins MD: [address] [address], Ph. [phone] 03/09/2020 Lumbosacral Spondylosis without Myelopathy; Degeneration of Lumbar Intervertebral Disc; Degeneration of Lumbosacral Intervertebral Disc; Displacement of Lumbar Intervertebral Disc without Myelopathy; Intervertebral Disc Disorder; Spondylosis without Myelopathy; Spondylolysis; Inflammation of Sacroiliac Joint Jenny Doran AIR HOLE DRILLER: [address] [address], Ph. 02/10/2020 Lumbosacral Spondylosis without Myelopathy; Degeneration of Lumbar Intervertebral Disc; Degeneration of Lumbosacral Intervertebral Disc; Displacement of Lumbar Intervertebral Disc without Myelopathy; Intervertebral Disc Disorder; Spondylosis without Myelopathy; Spondylolysis Jenny Doran AIR HOLE DRILLER: [address] [address], Ph. 01/10/2020 Lumbosacral Spondylosis without Myelopathy; Spondylosis without Myelopathy; Degeneration of Lumbar Intervertebral Disc; Degeneration of Lumbosacral Intervertebral Disc; Displacement of Lumbar Intervertebral Disc without Myelopathy; Intervertebral Disc Disorder; Spondylolysis Jian Collins MD: [address] [address], Ph. 12/26/2019 Lumbosacral Spondylosis without Myelopathy; Spondylosis without Myelopathy; Degeneration of Lumbar Intervertebral Disc; Degeneration of Lumbosacral Intervertebral Disc; Displacement of Lumbar Intervertebral Disc without Myelopathy; Intervertebral Disc Disorder; Spondylolysis Jian Collins MD: [address] [address], [facility] [place] [address], Ph. 12/04/2019 Lumbosacral Spondylosis without Myelopathy; Degeneration of Lumbar Intervertebral Disc; Degeneration of Lumbosacral Intervertebral Disc; Displacement of Lumbar Intervertebral Disc without Myelopathy; Intervertebral Disc Disorder; Spondylosis without Myelopathy; Spondylolysis Jenny Simsmichela, SRIRAM: [address] [address], [facility] [place] [address], Ph. 11/28/2019 Lumbosacral Spondylosis without Myelopathy; Spondylosis without Myelopathy; Degeneration of Lumbosacral Intervertebral Disc; Degeneration of Lumbar Intervertebral Disc; Intervertebral Disc Disorder; Displacement of Lumbar Intervertebral Disc without Myelopathy Jian Collins MD: [address] [address], [place] [address], Ph. 11/07/2019 Intervertebral Disc Disorder; Displacement of Lumbar Intervertebral Disc without Myelopathy; Degeneration of Lumbosacral Intervertebral Disc; Degeneration of Lumbar Intervertebral Disc; Lumbosacral Spondylosis without Myelopathy; Spondylosis without Myelopathy Jian Collins MD: [address] [address], Ph. 10/03/2019 Intervertebral Disc Disorder; Displacement of Lumbar Intervertebral Disc without Myelopathy; Degeneration of Lumbosacral Intervertebral Disc; Degeneration of Lumbar Intervertebral Disc; Lumbosacral Spondylosis without Myelopathy; Spondylosis without Myelopathy Jian Collins MD: [address] [address], [facility] [place] [address], Ph. 09/12/2019 Intervertebral Disc Disorder; Displacement of Lumbar Intervertebral Disc without Myelopathy; Degeneration of Lumbosacral Intervertebral Disc; Degeneration of Lumbar Intervertebral Disc; Lumbosacral Spondylosis without Myelopathy; Spondylosis without Myelopathy Jian Collins MD: [address] [address], [facility] [place] [address], Ph. 08/29/2019 Lumbosacral Spondylosis without Myelopathy; Spondylosis without Myelopathy; Degeneration of Lumbar Intervertebral Disc; Degeneration of Lumbosacral Intervertebral Disc; Displacement of Lumbar Intervertebral Disc without Myelopathy; Intervertebral Disc Disorder Jian Collins MD: [address] [facility] [address], [place] [address], Ph. 08/28/2019 Lumbosacral Spondylosis without Myelopathy; Degeneration of Lumbar Intervertebral Disc; Degeneration of Lumbosacral Intervertebral Disc; Displacement of Lumbar Intervertebral Disc without Myelopathy; Intervertebral Disc Disorder; Spondylosis without Myelopathy; Spondylolysis Jenny Doran, AIR HOLE DRILLER: [address], [place] [address], Ph. 08/05/2019 Lumbosacral Spondylosis without Myelopathy Jian Collins MD: [address] [address], [facility] [place] [address], Ph. Social History Tobacco Smoking Status Never [...]
[2021-08-22] MEDS ORDERED: KETOROLAC 60MG 2ML VIAL IM ONE (17:10)
[2021-08-22] MEDS ORDERED: diazePAM 10 MG TAB PO ONE (17:10)
[2021-08-22] MEDS ORDERED: LIDOCAINE 5% (LIDODERM) PATCH TD ONE (17:10)
[2021-08-22] MEDS ORDERED: diazePAM 5MG TABLET PO ONE (17:15)
--- NOTE | 2021-08-22 17:42 | REP ---
INDICATION: pt tender lumbar after lifts, squats. COMPARISON: None. TECHNIQUE: Five views of the lumbar spine were obtained. FINDINGS: There is degenerative disc disease, L3-4 and L4-5 with narrowing of the disc space and marginal osteophytes. The SI joints are normal. The perivertebral soft tissues are normal. IMPRESSION: Degenerative disc disease, L3-4 and L4-5. <Electronically signed by Ke Bro > 08/22/21 [id number]
[2021-08-22] MEDS ORDERED: PRED20TA PO (18:04)
[2021-08-22] MEDS ORDERED: METH-1165 PO (18:04)
[2021-08-22] MEDS ORDERED: predniSONE 20 MG TAB PO ONE (18:10)
--- OUTSIDE RECORDS SUMMARY | 2021-08-22 18:13 | CCD ---
Author Author [facility] Organization [facility] Address Unknown Phone Unavailable Care Team Providers Care [employer]eter [employer] Name Role Phone Mehreen Collins MD Unavailable [...] Unavailable Unavailable BolMehreen rivera MD Unavailable Unavailable Jumalon, M Jenny PHOTOGRAVURE PRESS OPERATOR Unavailable Unavailable Jumalon, M Jenny PHOTOGRAVURE PRESS OPERATOR Unavailable Unavailable Jumalon, M Jenny PHOTOGRAVURE PRESS OPERATOR Unavailable Unavailable Jumalon, M Jenny PHOTOGRAVURE PRESS OPERATOR Unavailable Unavailable Jumalon, M Jenny PHOTOGRAVURE PRESS OPERATOR Unavailable Unavailable Jumalon, M Jenny PHOTOGRAVURE PRESS OPERATOR Unavailable Unavailable Jumalon, M Jenny PHOTOGRAVURE PRESS OPERATOR Unavailable Unavailable Jumalon, M Jenny PHOTOGRAVURE PRESS OPERATOR Unavailable Unavailable Jumalon, M Jenny PHOTOGRAVURE PRESS OPERATOR Unavailable Unavailable Jumalon, M Jenny PHOTOGRAVURE PRESS OPERATOR Unavailable Unavailable Jumalon, M Jenny PHOTOGRAVURE PRESS OPERATOR Unavailable Unavailable Jumalon, M Jenny PHOTOGRAVURE PRESS OPERATOR Unavailable Unavailable Jumalon, M Jenny PHOTOGRAVURE PRESS OPERATOR Unavailable Unavailable Jumalon, M Jenny PHOTOGRAVURE PRESS OPERATOR Unavailable Unavailable Jumalon, M Jenny PHOTOGRAVURE PRESS OPERATOR Unavailable Unavailable Jumalon, M Jenny PHOTOGRAVURE PRESS OPERATOR Unavailable Unavailable Jumalon, M Jenny PHOTOGRAVURE PRESS OPERATOR Unavailable Unavailable Jumalon, M Jenny PHOTOGRAVURE PRESS OPERATOR Unavailable Unavailable Jumalon, M Jenny PHOTOGRAVURE PRESS OPERATOR Unavailable Unavailable Jumalon, M Jenny PHOTOGRAVURE PRESS OPERATOR Unavailable Unavailable Jumalon, M Jenny PHOTOGRAVURE PRESS OPERATOR Unavailable Unavailable Jumalon, M Jenny PHOTOGRAVURE PRESS OPERATOR Unavailable Unavailable Jumalon, M Jenny PHOTOGRAVURE PRESS OPERATOR Unavailable Unavailable Jumalon, M Jenny PHOTOGRAVURE PRESS OPERATOR Unavailable Unavailable Jumalon, M Jenny PHOTOGRAVURE PRESS OPERATOR Unavailable Unavailable Jumalon, M Jenny PHOTOGRAVURE PRESS OPERATOR Unavailable Unavailable Jumalon, M Jenny PHOTOGRAVURE PRESS OPERATOR Unavailable Unavailable Jumalon, M Jenny PHOTOGRAVURE PRESS OPERATOR Unavailable Unavailable Jumalon, M Jenny PHOTOGRAVURE PRESS OPERATOR Unavailable Unavailable Davonte Doran PHOTOGRAVURE PRESS OPERATOR Unavailable Unavailable Re-disclosure Warning The records that [...] is protected by Article 27-F of the [facility] Public Health law. If you continue you may have access to information: Regarding HIV / AIDS; Provided by facilities licensed or operated by the [facility] Office of Mental Health; or Provided by the [facility] Office for People With Developmental Disabilities. If such information is present, then the following [facility] mandated warning applies: This information has been [...] law may result in a fine or care home sentence or both. A general authorization for the release of medical or other information is NOT sufficient authorization for further disc losure. Encounters Encounter Providers Location Date Indications Data Source(s ) Jian Collins MD: [address] [facility] [address], [place] [address], Ph. Attender: Jian Collins MD [place] - [facility] - Main Office 08/13/2021 12:00:00 AM EDT [place] ([facility]) Jenny Doran, LEAD PAINTER: [address] [facility] [address], [facility] [place] [address], Ph. Attender: Jenny BURKETT [place] - [facility] 07/12/2021 12:00:00 AM EDT [place] ([facility]) Jian Collins MD: [address], [address], [place] [address], Ph. Attender: Jian Collins MD [place] - [facility] 07/08/2021 12:00:00 AM EDT [place] ([facility]) Jian Collins MD: [address], [address], [place] [address], Ph. Attender: Jian Collins MD [place] - [facility] 07/08/2021 12:00:00 AM EDT [place] ([facility]) Jian Collins MD: [address]53 [address], [address], [place] [address], Ph. [phone] Attender: Jian Collins MD [place] - [facility] 07/02/2021 12:00:00 AM EDT [place] ([facility]) Jian Collins MD: [address], [address], [place] [address], Ph. [phone] Attender: Jian Collins MD [place] - [facility] 07/02/2021 12:00:00 AM EDT [place] ([facility]) Jian Collins MD: [address], [address], [place] [address], Ph. [phone] Attender: Jian Collins MD [place] - [facility] 07/02/2021 12:00:00 AM EDT [place] ([facility]) Jenny Doran, LEAD PAINTER: [address], [address], [place] [address], Ph. Attender: Jenny Doran [facility] - [facility] 07/01/2021 12:00:00 AM EDT ATHE NA ([facility]) Jenny Doran, LEAD PAINTER: [address], [place] [address], Ph. Attender: Jenny Doran [facility] - [facility] 07/01/2021 12:00:00 AM EDT [place] ([facility]) Jenny Doran, LEAD PAINTER: [address], [place] [address], Ph. Attender: Jenny Doran [facility] - [facility] 07/01/2021 12:00:00 AM EDT [place]HE [place] ([facility]) Jenny Doran, LEAD PAINTER: [address], [place] [address], Ph. Attender: Jenny Doran [facility] - [facility] 07/01/2021 12:00:00 AM EDT [place] ([facility]) Jian Collins MD: [address]64 [address], [place] [address], Ph. Attender: Jian Collins MD [place] - [facility] 06/07/2021 12:00:00 AM EDT [place] ([facility]) Jian Collins MD: [address], [place] [address], Ph. Attender: Jian Collins MD [place] - [facility] 06/07/2021 12:00:00 AM EDT [place] ([facility]) Jian Collins MD: [address], [address], [place] [address], Ph. Attender: Jian Collins MD [place] - [facility] 06/07/2021 12:00:00 AM EDT [place] ([facility]) Jian Collins MD: [address], [address], [place] [address], Ph. Attender: Jian Collins MD [place] - [facility] 06/07/2021 12:00:00 AM EDT [place] ([facility]) Jian Collins MD: [address], [address], [place] [address], Ph. Attender: Jian Collins MD [place] - [facility] 06/07/2021 12:00:00 AM EDT [place] ([facility]) Jenny Doran, LEAD PAINTER: [address], [place] [address], Ph. Attender: Jenny Doran [facility] - [facility] 05/21/2021 12:00:00 AM EDT ATHJessica REYES ([facility]) Jenny Doran, LEAD PAINTER: [address], [place] [address], Ph. Attender: Jenny Doran [facility] - [facility] 05/21/2021 12:00:00 AM EDT HUSSAIN REYES ([facility]) Jenny Doran, LEAD PAINTER: [address], [place] [address], Ph. Attender: Jenny Doran [facility] - [facility] 05/21/2021 12:00:00 AM EDT [place]HE [place] ([facility]) Jenny Doran, LEAD PAINTER: [address], [place] [address], Ph. Attender: Jenny Doran [facility] - [facility] 05/21/2021 12:00:00 AM EDT ATHE [place] ([facility]) Jenny Doran, LEAD PAINTER: [address], [place] [address], Ph. Attender: Jenny Doran [facility] - [facility] 05/21/2021 12:00:00 AM EDT ATHE NA ([facility]) Jenny Doran, LEAD PAINTER: [address], [place] [address], Ph. Attender: Jenny Doran [facility] - [facility] 05/21/2021 12:00:00 AM EDT ATHE [place] ([facility]) Jenny Doran, LEAD PAINTER: [address], [place] [address], Ph. Attender: Jenny Doran [facility] - [facility] 03/08/2021 12:00:00 AM EDT ATHE NA ([facility]) Jenny Doran, LEAD PAINTER: [address], [place] [address], Ph. Attender: Jenny Doran [facility] - [facility] 03/08/2021 12:00:00 AM EDT ATHE NA ([facility]) Jenny Doran, LEAD PAINTER: [address], [place] [address], Ph. Attender: Jenny Doran [facility] - [facility] 03/08/2021 12:00:00 AM EDT ATHE NA ([facility]) Jenny Doran, LEAD PAINTER: [address]64 [address], [place] [address], Ph. Attender: Jenny Doran [facility] - [facility] 03/08/2021 12:00:00 AM EDT ATHE NA ([facility]) Jenny Doran, LEAD PAINTER: [address]94 [address], [place] [address], Ph. Attender: Jenny Doran [facility] - [facility] 03/08/2021 12:00:00 AM EDT ATHE NA ([facility]) Jenny Doran, LEAD PAINTER: [address], [place] [address], Ph. Attender: Jenny Doran [facility] - [facility] 03/08/2021 12:00:00 AM EDT ATHE NA ([facility]) Jenny Doran, LEAD PAINTER: [address], [place] [address], Ph. Attender: Jenny Doran [facility] - [facility] 03/08/2021 12:00:00 AM EDT ATHE NA ([facility]) Jian Collins MD: [address]69 [address], [facility] [place] [address], Ph. Attender: Jian Collins MD [place] - [facility] 02/19/2021 12:00:00 AM EDT [place] ([facility]) Jian Collins MD: [address]115 [address], [address], [place] [address], Ph. Attender: Jian Collins MD [place] - [facility] 02/19/2021 12:00:00 AM EDT [place] ([facility]) Jian Collins MD: [address]85 [address], [address], [place] [address], Ph. Attender: Jian GLORIA - [facility] 02/19/2021 12:00:00 AM EDT [place] ([facility]) Jian Collins MD: [address]19 [address], [address], [place] [address], Ph. Attender: Jian GLORIA - [facility] 02/19/2021 12:00:00 AM EDT [place] ([facility]) Jian Collins MD: [address]61 [address], [address], [place] [address], Ph. Attender: Jian Collins MD [place] - [facility] 02/19/2021 12:00:00 AM EDT [place] ([facility]) Jian Collins MD: [address]1285 [address], [address], [place] [address], Ph. Attender: Jian GLORIA - [facility] 02/19/2021 12:00:00 AM EDT [place] ([facility]) Jian Collins MD: [address]9768 [address], [address], [place] [address], Ph. Attender: Jian GLORIA - [facility] 02/19/2021 12:00:00 AM EDT [place] ([facility]) Jian Collins MD: [address]31 [address], [address], [place] [address], Ph. Attender: Jian Collins MD [place] - [facility] 02/19/2021 12:00:00 AM EDT [place] ([facility]) Jenny Doran, LEAD PAINTER: [address], [address], [place] [address], Ph. Attender: Jenny Simsmichela [facility] - [facility] 02/02/2021 12:00:00 AM EDT ATHE NA ([facility]) Jenny Doran, LEAD PAINTER: [address], [place] [address], Ph. Attender: Jenny Simsmichela [facility] 02/02/2021 12:00:00 AM EDT ATHE NA ([facility]) Jenny Doran, LEAD PAINTER: [address]38 [address], [place] [address], Ph. Attender: Jenny Simsmichela [facility] 02/02/2021 12:00:00 AM EDT ATHE NA ([facility]) Jenny Doran, LEAD PAINTER: [address]407 [address], [place] [address], Ph. Attender: Jenny Doran [facility] 02/02/2021 12:00:00 AM EDT ATHE NA ([facility]) Jenny Doran, LEAD PAINTER: [address]161 [address], [place] [address], Ph. Attender: Jenny Doran PHOTOGRAVURE PRESS OPERATOR [place] - [facility] 02/02/2021 12:00:00 AM EDT ATHE NA ([facility]) Jenny Doran, LEAD PAINTER: [address]60 [address], [place] [address], Ph. Attender: Jenny Doran [facility] - [facility] 02/02/2021 12:00:00 AM EDT ATHE NA ([facility]) Jenny Doran, LEAD PAINTER: [address]69 [address], [place] [address], Ph. Attender: Jenny Doran [facility] - [facility] 02/02/2021 12:00:00 AM EDT ATHE NA ([facility]) Jenny Doran, LEAD PAINTER: [address]43 [address], [place] [address], Ph. Attender: Jenny Doran [facility] - [facility] 02/02/2021 12:00:00 AM EDT ATHE NA ([facility]) Jenny Doran, LEAD PAINTER: [address]40 [address], [place] [address], Ph. Attender: Jenny Doran [facility] - [facility] 02/02/2021 12:00:00 AM EDT ATHE [place] ([facility]) Jian Collins MD: 11791 [address], [place] [address], Ph. Attender: Jian Collins MD [place] - [facility] 01/28/2021 12:00:00 AM EDT [place] ([facility]) Jian Collins MD: 28929 [address], [address], [place] [address], Ph. Attender: Jian GLORIA - [facility] 01/28/2021 12:00:00 AM EDT [place] ([facility]) Jian Collins MD: 90237 [address], [address], [place] [address], Ph. Attender: Jian GLORIA - [facility] 01/28/2021 12:00:00 AM EDT [place] ([facility]) Jian Collins MD: 11373 [address], [address], [place] [address], Ph. Attender: Jian GLORIA - [facility] 01/28/2021 12:00:00 AM EDT [place] ([facility]) Jian Collins MD: 97466 [address], [address], [place] [address], Ph. Attender: Jian GLORIA - [facility] 01/28/2021 12:00:00 AM EDT [place] ([facility]) Jian Collins MD: 21694 [address], [address], [place] [address], Ph. Attender: Jian GLORIA - [facility] 01/28/2021 12:00:00 AM EDT [place] ([facility]) Jian Collins MD: 77475 [address], [address], [place] [address], Ph. Attender: Jian GLORIA - [facility] 01/28/2021 12:00:00 AM EDT [place] ([facility]) Jian Collins MD: 84781 [address], [address], [place] [address], Ph. Attender: Jian Collins MD [place] - [facility] 01/28/2021 12:00:00 AM EDT [place] ([facility]) Jian Collins MD: 58570 [address], [place] [address], Ph. Attender: Jian Collins MD [place] - [facility] 01/28/2021 12:00:00 AM EDT [place] ([facility]) Jian Collins MD: 54720 [address], [place] [address], Ph. Attender: Jian Collins MD [place] - [facility] 01/28/2021 12:00:00 AM EDT [place] ([facility]) Jenny Doran, LEAD PAINTER: [address]206 [address], [place] [address], Ph. Attender: Jenny Doran [facility] - [facility] 01/07/2021 12:00:00 AM EST ATHE NA ([facility]) Jenny Doran, LEAD PAINTER: [address]79 [address], [place] [address], Ph. Attender: Jenny Doran [facility] - [facility] 01/07/2021 12:00:00 AM EST ATHE NA ([facility]) Jenny Doran, LEAD PAINTER: [address]242 [address], [place] [address], Ph. Attender: Jenny Doran [facility] - [facility] 01/07/2021 12:00:00 AM EST ATHE NA ([facility]) Jenny Doran, LEAD PAINTER: [address]72 [address], [place] [address], Ph. Attender: Jenny Doran [facility] - [facility] 01/07/2021 12:00:00 AM EST ATHE NA ([facility]) Jenny Doran, LEAD PAINTER: [address], [address], [place] [address], Ph. Attender: Jenny Doran [facility] 01/07/2021 12:00:00 AM EST ATHE NA ([facility]) Jenny Doran, LEAD PAINTER: [address]78 [address], [place] [address], Ph. Attender: Jenny Doran [facility] 01/07/2021 12:00:00 AM EST ATHE NA ([facility]) Jenny Doran, LEAD PAINTER: 85369 [address], [place] [address], Ph. Attender: Jenny Doran [facility] 01/07/2021 12:00:00 AM EST ATHE NA ([facility]) Jenny Doran, LEAD PAINTER: [address]34 [address], [place] [address], Ph. Attender: Jenny Doran [facility] 01/07/2021 12:00:00 AM EST ATHE NA ([facility]) Jenny Doran, LEAD PAINTER: [address]72 [address], [place] [address], Ph. Attender: Jenny Doran [facility] - [facility] 01/07/2021 12:00:00 AM EST ATHE NA ([facility]) Jenny Doran, LEAD PAINTER: [address]336 [address], [place] [address], Ph. Attender: Jenny Doran [facility] - [facility] 01/07/2021 12:00:00 AM EST ATHE NA ([facility]) Jenny Doran, LEAD PAINTER: [address]27 [address], [place] [address], Ph. Attender: Jenny Doran [facility] - [facility] 01/07/2021 12:00:00 AM EST ATHE NA ([facility]) Jian Collins MD: 11454 [address], [place] [address], Ph. Attender: Jian Collins MD [place] - [facility] 12/23/2020 12:00:00 AM EST [place] ([facility]) Jian Collins MD: 01706 [address], [place] [address], Ph. Attender: Jian Collins MD [place] - [facility] 12/23/2020 12:00:00 AM EST [place] ([facility]) Jian Collins MD: 05603 [address], [place] [address], Ph. Attender: Jian Collins MD [place] - [facility] 12/23/2020 12:00:00 AM EST [place] ([facility]) Jian Collins MD: 23078 [address], [place] [address], Ph. Attender: Jian Collins MD [place] - [facility] 12/23/2020 12:00:00 AM EST [place] ([facility]) Jian Collins MD: 17216 [address], [place] [address], Ph. Attender: Jian Collins MD [place] - [facility] 12/23/2020 12:00:00 AM EST [place] ([facility]) Jian Collins MD: 11066 [address], [address], [place] [address], Ph. Attender: Jian Collins MD [place] - [facility] 12/23/2020 12:00:00 AM EST [place] ([facility]) Jian Collins MD: 06571 [address], [place] [address], Ph. Attender: Jian GLORIA - [facility] 12/23/2020 12:00:00 AM EST [place] ([facility]) Jian Collins MD: 76058 [address], [place] [address], Ph. Attender: Jian GLORIA - [facility] 12/23/2020 12:00:00 AM EST [place] ([facility]) Jian Collins MD: 36549 [address], [address], [place] [address], Ph. Attender: Jian GLORIA - [facility] 12/23/2020 12:00:00 AM EST [place] ([facility]) Jian Collins MD: 93447 [address], [address], [place] [address], Ph. Attender: Jian Collins MD [place] - [facility] 12/23/2020 12:00:00 AM EST [place] ([facility]) Jian Collins MD: 06792 [address], [place] [address], Ph. Attender: Jian Collins MD [place] - [facility] 12/23/2020 12:00:00 AM EST [place] ([facility]) Jian Collins MD: [address]2710 [address], [place] [address], Ph. Attender: Jian Collins MD [place] - [facility] 12/23/2020 12:00:00 AM EST [place] ([facility]) Jenny Doran, LEAD PAINTER: 19494 [address], [place] [address], Ph. Attender: Jennymelissa Doran [facility] - [facility] 12/09/2020 12:00:00 AM EST ATHE NA ([facility]) Jenny Doran, LEAD PAINTER: 37585 [address], [place] [address], Ph. Attender: Jenny Doran [facility] - [facility] 12/09/2020 12:00:00 AM EST ATHE NA ([facility]) Jenny Doran, LEAD PAINTER: 59120 [address], [place] [address], Ph. Attender: Jenny Doran [facility] - [facility] 12/09/2020 12:00:00 AM EST ATHE NA ([facility]) Jenny Doran, LEAD PAINTER: [address]60 [address], [place] [address], Ph. Attender: Jenny Doran [facility] - [facility] 12/09/2020 12:00:00 AM EST ATHE NA ([facility]) Jenny Doran, LEAD PAINTER: 72081 [address], [place] [address], Ph. Attender: Jenny Doran [facility] - [facility] 12/09/2020 12:00:00 AM EST ATHE NA ([facility]) Jenny Doran, LEAD PAINTER: 05484 [address], [place] [address], Ph. Attender: Jenny Doran [facility] 12/09/2020 12:00:00 AM EST [facility]HE NA ([facility] [facility] Jenny Doran, LEAD PAINTER: [address], [place] [address], Ph. Attender: Jenny Doran [facility] - [facility] 12/09/2020 12:00:00 AM EST ATHE NA ([facility]) Jenny Doran, LEAD PAINTER: [address], [place] [address], Ph. Attender: Jenny Doran [facility] - [facility] 12/09/2020 12:00:00 AM EST ATHE NA ([facility]) Jenny Doran, LEAD PAINTER: [address], [facility] [place] [address], Ph. Attender: Jenny Doran [facility] 12/09/2020 12:00:00 AM EST ATHE NA ([facility]) Jenny Doran, LEAD PAINTER: [address], [place] [address], Ph. Attender: Jenny Doran [facility] - [facility] 12/09/2020 12:00:00 AM EST ATHE NA ([facility]) Jenny Doran, LEAD PAINTER: [address], [place] [address], Ph. Attender: Jenny Doran [facility] - [facility] 12/09/2020 12:00:00 AM EST ATHE NA ([facility]) Jenny Doran, LEAD PAINTER: [address], [place] [address], Ph. Attender: Jenny Doran [facility] - [facility] 12/09/2020 12:00:00 AM EST ATHE NA ([facility]) Jenny Doran, LEAD PAINTER: [address], [place] [address], Ph. Attender: Jenny Doran [facility] 12/09/2020 12:00:00 AM EST ATHE NA ([facility]) Medications No Information Insurance Providers Payer name Policy type / Coverage type Policy ID Covered democrat ID Covered democrat's relationship to chaves Policy Chaves Plan Information [facility] F [id number] SELF [id number] [facility] DUT[facility] [id number] SP [id number] [facility]P [id number] 18 [id number] [facility] O [id number] S [id number] Problems, Conditions, and Diagnoses No Information Surgeries/Procedures No Information Results ID Date Data Source [id number] 07/02/2021 12:00:00 AM EDT [facility] ([facility]) Name Value Range Interpretation Code Description Data Prachi rce(s) Supporting Document(s) SARS-CoV-2 (COVID-19) RNA [Presence] in Respiratory specimen by FREDY with probe detection negative negative Sars-cov-2 [facility] ([facility]) ID Date Data Source [id number] 07/02/2021 12:00:00 AM EDT [facility] ([facility]) Name Value Range Interpretation Code Description Data Prachi rce(s) Supporting Document(s) ID Date Data Source [id number] 07/02/2021 12:00:00 AM EDT [facility] Name Value Range Interpretation Code Description Data Prachi rce(s) Supporting Document(s) SARS-CoV-2 NEGATIVE [facility] This lab was ordered by [facility] and reported by [employer]. ID Date Data Source [id number] 07/02/2021 12:00:00 AM EDT [facility] ([facility]) Name Value Range Interpretation Code Description Data Prachi rce(s) Supporting Document(s) SARS-CoV-2 (COVID-19) RNA [Presence] in Respiratory specimen by FREDY with probe detection negative negative Sars-cov-2 [facility] ([facility]) ID Date Data Source [id number] 07/02/2021 12:00:00 AM EDT [facility] ([facility]) Name Value Range Interpretation Code Description Data Prachi rce(s) Supporting Document(s) ID Date Data Source [id number] 02/15/2021 10:40:00 AM EDT [facility] Name Value Range Interpretation Code Description Data Prachi rce(s) Supporting Document(s) SARS coronavirus 2 RNA Not Detected [facility] This lab was ordered by [facility] and reported by [facility]. ID Date Data Source [id number] 01/25/2021 08:46:00 AM EDT [facility] Name Value Range Interpretation Code Description Data Prachi rce(s) Supporting Document(s) SARS coronavirus 2 RNA Not Detected [facility] This lab was ordered by [facility] and reported by [facility]. ID Date Data Source [id number] 12/18/2020 09:30:00 AM EST [facility] Name Value Range Interpretation Code Description Data Prachi rce(s) Supporting Document(s) SARS coronavirus 2 RNA Not Detected [facility] This lab was ordered by [facility] and reported by [facility]. Procedure Social History No Information Vital Signs ID Date Data Source UNK Name Value Range Interpretation Code Description Data Source(s) Diastolic blood pressure 92 mm[Hg] 92 mm[Hg] [facility] ([facility]) Body height 69 [in_i] 69 [in_i] [facility] ([facility]) Systolic blood pressure 140 mm[Hg] 140 mm[Hg] A THENA ([facility]) Diastolic blood pressure 93 mm[Hg] 93 mm[Hg] [facility] ([facility]) Body height 69 [in_i] 69 [in_i] [facility] ([facility]) Systolic blood pressure 161 mm[Hg] 161 mm[Hg] A THENA ([facility]) Diastolic blood pressure 93 mm[Hg] 93 mm[Hg] [facility] ([facility]) Body height 69 [in_i] 69 [in_i] [facility] ([facility]) Systolic blood pressure 161 mm[Hg] 161 mm[Hg] A THENA ([facility]) Diastolic blood pressure 93 mm[Hg] 93 mm[Hg] [facility] ([facility]) Body height 69 [in_i] 69 [in_i] [facility] ([facility]) Systolic blood pressure 161 mm[Hg] 161 mm[Hg] A THENA ([facility]) Diastolic blood pressure 93 mm[Hg] 93 mm[Hg] [facility] ([facility]) Body height 69 [in_i] 69 [in_i] [facility] ([facility]) Systolic blood pressure 161 mm[Hg] 161 mm[Hg] A THENA ([facility]) Diastolic blood pressure 85 mm[Hg] 85 mm[Hg] [facility] ([facility]) Body height 69 [in_i] 69 [in_i] [facility] ([facility]) Systolic blood pressure 134 mm[Hg] 134 mm[Hg] A THENA ([facility]) Diastolic blood pressure 85 mm[Hg] 85 mm[Hg] [facility] ([facility]) Body height 69 [in_i] 69 [in_i] [facility] ([facility]) Systolic blood pressure 134 mm[Hg] 134 mm[Hg] A THENA ([facility]) Diastolic blood pressure 85 mm[Hg] 85 mm[Hg] [facility] ([facility]) Body height 69 [in_i] 69 [in_i] [facility] ([facility]) Systolic blood pressure 134 mm[Hg] 134 mm[Hg] A THENA ([facility]) Diastolic blood pressure 85 mm[Hg] 85 mm[Hg] [facility] ([facility]) Body height 69 [in_i] 69 [in_i] [facility] ([facility]) Systolic blood pressure 134 mm[Hg] 134 mm[Hg] A THENA ([facility]) Diastolic blood pressure 85 mm[Hg] 85 mm[Hg] [facility] ([facility]) Body height 69 [in_i] 69 [in_i] [facility] ([facility]) Systolic blood pressure 134 mm[Hg] 134 mm[Hg] A THENA ([facility]) Diastolic blood pressure 85 mm[Hg] 85 mm[Hg] [facility] ([facility]) Body height 69 [in_i] 69 [in_i] [facility] ([facility]) Systolic blood pressure 134 mm[Hg] 134 mm[Hg] A THENA ([facility]) Diastolic blood pressure 85 mm[Hg] 85 mm[Hg] [facility] ([facility]) Body height 69 [in_i] 69 [in_i] [facility] ([facility]) Systolic blood pressure 135 mm[Hg] 135 mm[Hg] A THENA ([facility]) Diastolic blood pressure 85 mm[Hg] 85 mm[Hg] [facility] ([facility]) Body height 69 [in_i] 69 [in_i] [facility] ([facility]) Systolic blood pressure 135 mm[Hg] 135 mm[Hg] A THENA ([facility]) Diastolic blood pressure 85 mm[Hg] 85 mm[Hg] [facility] ([facility]) Body height 69 [in_i] 69 [in_i] [facility] ([facility]) Systolic blood pressure 135 mm[Hg] 135 mm[Hg] A THENA ([facility]) Diastolic blood pressure 85 mm[Hg] 85 mm[Hg] [facility] ([facility]) Body height 69 [in_i] 69 [in_i] [facility] ([facility]) Systolic blood pressure 135 mm[Hg] 135 mm[Hg] A THENA ([facility]) Diastolic blood pressure 85 mm[Hg] 85 mm[Hg] [facility] ([facility]) Body height 69 [in_i] 69 [in_i] [facility] ([facility]) Systolic blood pressure 135 mm[Hg] 135 mm[Hg] A THENA ([facility]) Diastolic blood pressure 85 mm[Hg] 85 mm[Hg] [facility] ([facility]) Body height 69 [in_i] 69 [in_i] [facility] ([facility]) Systolic blood pressure 135 mm[Hg] 135 mm[Hg] A THENA ([facility]) Diastolic blood pressure 85 mm[Hg] 85 mm[Hg] [facility] ([facility]) Body height 69 [in_i] 69 [in_i] [facility] ([facility]) Systolic blood pressure 135 mm[Hg] 135 mm[Hg] A THENA ([facility]) Diastolic blood pressure 70 mm[Hg] 70 mm[Hg] [facility] ([facility]) Body height 69 [in_i] 69 [in_i] [facility] ([facility]) Systolic blood pressure 104 mm[Hg] 104 mm[Hg] A THENA ([facility]) Diastolic blood pressure 70 mm[Hg] 70 mm[Hg] [facility] ([facility]) Body height 69 [in_i] 69 [in_i] [facility] ([facility]) Systolic blood pressure 104 mm[Hg] 104 mm[Hg] A THENA ([facility]) Diastolic blood pressure 70 mm[Hg] 70 mm[Hg] [facility] ([facility]) Body height 69 [in_i] 69 [in_i] [facility] ([facility]) Systolic blood pressure 104 mm[Hg] 104 mm[Hg] A THENA ([facility]) Diastolic blood pressure 70 mm[Hg] 70 mm[Hg] [facility] ([facility]) Diastolic blood pressure 70 mm[Hg] 70 mm[Hg] [facility] ([facility]) Body height 69 [in_i] 69 [in_i] [facility] ([facility]) Systolic blood pressure 104 mm[Hg] 104 mm[Hg] A THENA ([facility]) Body height 69 [in_i] 69 [in_i] [facility] ([facility]) Systolic blood pressure 104 mm[Hg] 104 mm[Hg] A THENA ([facility]) Diastolic blood pressure 70 mm[Hg] 70 mm[Hg] [facility] ([facility]) Body height 69 [in_i] 69 [in_i] [facility] ([facility]) Systolic blood pressure 104 mm[Hg] 104 mm[Hg] A THENA ([facility]) Diastolic blood pressure 70 mm[Hg] 70 mm[Hg] [facility] ([facility]) Body height 69 [in_i] 69 [in_i] [facility] ([facility]) Systolic blood pressure 104 mm[Hg] 104 mm[Hg] A THENA ([facility]) Diastolic blood pressure 70 mm[Hg] 70 mm[Hg] [facility] ([facility]) Body height 69 [in_i] 69 [in_i] [facility] ([facility]) Systolic blood pressure 104 mm[Hg] 104 mm[Hg] A THENA ([facility]) Diastolic blood pressure 70 mm[Hg] 70 mm[Hg] [facility] ([facility]) Body height 69 [in_i] 69 [in_i] [facility] ([facility]) Systolic blood pressure 104 mm[Hg] 104 mm[Hg] A THENA ([facility]) Diastolic blood pressure 84 mm[Hg] 84 mm[Hg] [facility] ([facility]) Body height 69 [in_i] 69 [in_i] [facility] ([facility]) Systolic blood pressure 121 mm[Hg] 121 mm[Hg] A THENA ([facility]) Systolic blood pressure 121 mm[Hg] 121 mm[Hg] A THENA ([facility]) Diastolic blood pressure 84 mm[Hg] 84 mm[Hg] [facility] ([facility]) Body height 69 [in_i] 69 [in_i] [facility] ([facility]) Diastolic blood pressure 84 mm[Hg] 84 mm[Hg] [facility] ([facility]) Body height 69 [in_i] 69 [in_i] [facility] ([facility]) Systolic blood pressure 121 mm[Hg] 121 mm[Hg] A THENA ([facility]) Diastolic blood pressure 84 mm[Hg] 84 mm[Hg] [facility] ([facility]) Body height 69 [in_i] 69 [in_i] [facility] ([facility]) Systolic blood pressure 121 mm[Hg] 121 mm[Hg] A THENA ([facility]) Diastolic blood pressure 84 mm[Hg] 84 mm[Hg] [facility] ([facility]) Diastolic blood pressure 84 mm[Hg] 84 mm[Hg] [facility] ([facility]) Body height 69 [in_i] 69 [in_i] [facility] ([facility]) Systolic blood pressure 121 mm[Hg] 121 mm[Hg] A THENA ([facility]) Body height 69 [in_i] 69 [in_i] [facility] ([facility]) Systolic blood pressure 121 mm[Hg] 121 mm[Hg] A THENA ([facility]) Diastolic blood pressure 84 mm[Hg] 84 mm[Hg] [facility] ([facility]) Body height 69 [in_i] 69 [in_i] [facility] ([facility]) Systolic blood pressure 121 mm[Hg] 121 mm[Hg] A THENA ([facility]) Diastolic blood pressure 84 mm[Hg] 84 mm[Hg] [facility] ([facility]) Body height 69 [in_i] 69 [in_i] [facility] ([facility]) Systolic blood pressure 121 mm[Hg] 121 mm[Hg] A THENA ([facility]) Diastolic blood pressure 84 mm[Hg] 84 mm[Hg] [facility] ([facility]) Body height 69 [in_i] 69 [in_i] [facility] ([facility]) Systolic blood pressure 121 mm[Hg] 121 mm[Hg] A THENA ([facility]) Diastolic blood pressure 84 mm[Hg] 84 mm[Hg] [facility] ([facility]) Body height 69 [in_i] 69 [in_i] [facility] ([facility]) Systolic blood pressure 121 mm[Hg] 121 mm[Hg] A THENA ([facility]) Systolic blood pressure 121 mm[Hg] 121 mm[Hg] A THENA ([facility]) Diastolic blood pressure 84 mm[Hg] 84 mm[Hg] [facility] ([facility]) Body height 69 [in_i] 69 [in_i] [facility] ([facility]) Diastolic blood pressure 84 mm[Hg] 84 mm[Hg] [facility] ([facility]) Body height 69 [in_i] 69 [in_i] [facility] ([facility]) Systolic blood pressure 132 mm[Hg] 132 mm[Hg] A THENA ([facility]) Diastolic blood pressure 84 mm[Hg] 84 mm[Hg] [facility] ([facility]) Body height 69 [in_i] 69 [in_i] [facility] ([facility]) Systolic blood pressure 132 mm[Hg] 132 mm[Hg] A THENA ([facility]) Diastolic blood pressure 84 mm[Hg] 84 mm[Hg] [facility] ([facility]) Body height 69 [in_i] 69 [in_i] [facility] ([facility]) Systolic blood pressure 132 mm[Hg] 132 mm[Hg] A THENA ([facility]) Diastolic blood pressure 84 mm[Hg] 84 mm[Hg] [facility] ([facility]) Body height 69 [in_i] 69 [in_i] [facility] ([facility]) Systolic blood pressure 132 mm[Hg] 132 mm[Hg] A THENA ([facility]) Diastolic blood pressure 84 mm[Hg] 84 mm[Hg] [facility] ([facility]) Body height 69 [in_i] 69 [in_i] [facility] ([facility]) Systolic blood pressure 132 mm[Hg] 132 mm[Hg] A THENA ([facility]) Diastolic blood pressure 84 mm[Hg] 84 mm[Hg] [facility] ([facility]) Body height 69 [in_i] 69 [in_i] [facility] ([facility]) Systolic blood pressure 132 mm[Hg] 132 mm[Hg] A THENA ([facility]) Diastolic blood pressure 84 mm[Hg] 84 mm[Hg] [facility] ([facility]) Body height 69 [in_i] 69 [in_i] [facility] ([facility]) Systolic blood pressure 132 mm[Hg] 132 mm[Hg] A THENA ([facility]) Diastolic blood pressure 84 mm[Hg] 84 mm[Hg] [facility] ([facility]) Body height 69 [in_i] 69 [in_i] [facility] ([facility]) Systolic blood pressure 132 mm[Hg] 132 mm[Hg] A THENA ([facility]) Diastolic blood pressure 84 mm[Hg] 84 mm[Hg] [facility] ([facility]) Body height 69 [in_i] 69 [in_i] [facility] ([facility]) Systolic blood pressure 132 mm[Hg] 132 mm[Hg] A THENA ([facility]) Body height 69 [in_i] 69 [in_i] [facility] ([facility]) Diastolic blood pressure 84 mm[Hg] 84 mm[Hg] [facility] ([facility]) Body height 69 [in_i] 69 [in_i] [facility] ([facility]) Systolic blood pressure 132 mm[Hg] 132 mm[Hg] A THENA ([facility]) Systolic blood pressure 132 mm[Hg] 132 mm[Hg] A THENA ([facility]) Diastolic blood pressure 84 mm[Hg] 84 mm[Hg] [facility] ([facility]) Diastolic blood pressure 84 mm[Hg] 84 mm[Hg] [facility] ([facility]) Body height 69 [in_i] 69 [in_i] [facility] ([facility]) Systolic blood pressure 132 mm[Hg] 132 mm[Hg] A THENA ([facility]) Diastolic blood pressure 84 mm[Hg] 84 mm[Hg] [facility] ([facility]) Body height 69 [in_i] 69 [in_i] [facility] ([facility]) Systolic blood pressure 132 mm[Hg] 132 mm[Hg] A THENA ([facility])
[2021-08-22] MEDS ORDERED: **NOTE PATIENT COMMENT** MISC XX SCH (21:00)
== END 2021-08-22 18:20 | disposition home or self-care (01) ==
LOC: M ED 16:31
DX: M54.50 Low back pain, unspecified (principal); M51.36 Other intervertebral disc degeneration, lumbar region; Z87.81 Personal history of (healed) traumatic fracture
CPT/HCPCS: 72110; 96372; 99284; J1885; J7512